=== PATIENT | female | born 1945 | race Two or more races ===

== ENCOUNTER → 2025-06-21 | Outpatient (CLI) | payer MEDICARE, MEDICAID, SELFPAY ==
[2025-06-21 08:36] LABS: Basophils # (Auto) 0.1 Thou/mm3 (0.0-0.2); Basophils % (Auto) 1 % (0-2.5); Eosinophils # (Auto) 0.3 Thou/mm3 (0.0-0.5); Eosinophils % (Auto) 3 % (0-10); Hematocrit 36.6 % (36.0-46.0); Hemoglobin 11.8 g/dL (12.0-16.0); Immature Granulocytes Auto 0.02 Thou/mm3 (0.00-0.00); Lymphocytes # (Auto) 2.3 Thou/mm3 (1.0-4.8); Lymphocytes % (Auto) 26 % (10-50); Mean Corpuscular HGB Conc 32.2 g/dl (31.0-37.0); Mean Corpuscular Hemoglobin 31.1 pg (25.0-35.0); Mean Corpuscular Volume 96 fL (80-100); Monocytes # (Auto) 0.6 Thou/mm3 (0.0-0.8); Monocytes % (Auto) 7 % (0-12); Neutrophils # (Auto) 5.6 Thou/mm3 (1.8-7.7); Neutrophils % (Auto) 63 % (37-80); Nucleated Red Blood Cell # 0.00 Thou/mm3 (0.00-0.00); Nucleated Red Blood Cell % 0 /100 WBC (0); Platelet Count 243 Thou/mm3 (140-440); RDW Standard Deviation 48.7 fL (36.4-46.3); Red Blood Count 3.80 Miln/mm3 (4.00-5.20); White Blood Count 8.9 Thou/mm3 (3.6-11.0)
[2025-06-21 08:46] LABS: B-Type Natriuretic Peptide 42 pg/mL (0-100)
[2025-06-21 08:49] LABS: D-Dimer 470 ng/mL (<600)
[2025-06-21 08:56] LABS: Alanine Aminotransferase 12 U/L (10-49); Albumin, Serum 4.5 gm/dL (3.4-4.8); Albumin/Globulin Ratio 1.7 (1.2-2.2); Alkaline Phosphatase 126 U/L (46-116); Anion Gap 10 (7-16); Aspartate Amino Transferase 15 U/L (0-34); BUN/Creatinine Ratio 18 Ratio (12-20); Bilirubin,Total 0.4 mg/dL (0.3-1.2); Blood Urea Nitrogen 22 mg/dL (9-23); Calcium 9.7 mg/dL (8.3-10.6); Calcium (Corrected) 9.7 mg/dL (8.5-10.1); Carbon Dioxide 28.9 mMol/L (20.0-31.0); Chloride 106 mMol/L (98-107); Creatinine (Component) 1.2 mg/dL (0.6-1.3); Globulin 2.7 gm/dL (2.3-3.5); Glucose 125 mg/dL (74-106); Osmolality,Calculated 293 (275-295); Potassium 4.4 mMol/L (3.4-5.1); Sodium 145 mMol/L (136-145); Thyroid Stimulating Hormone 1.49 uIU/mL (0.55-4.78); Total Protein 7.2 gm/dL (5.7-8.2); eGFR 46 See Note
== END | disposition home or self-care (01) ==
LOC: COPL 07:01
PROVIDERS: PCP Family Medicine; Referring Provider Family Medicine; Visit Provider Family Medicine
DX: R60.0 Localized edema (principal); I11.9 Hypertensive heart disease without heart failure
CPT/HCPCS: 36415; 80053; 83880; 84443; 85025; 85379

== ENCOUNTER 2025-09-19 10:26 | Inpatient (IN) | payer MEDICARE, MEDICAID, SELFPAY ==
[2025-09-19] VITALS (16 sets, daily range): BP systolic 101–132; BP diastolic 38–64; PULSE 73–103; RESP 16–98; TEMP 36.6–37.1; O2SAT 91–100; BMI 31.2
--- NOTE | 2025-09-19 10:50 | PD.EDRME ---
Rapid Medical Screening Exam RME Arrival date/time: 09/19/25 10:26 80-year-old female presents to the emergency department today for complaints of vomiting black patient reports abdominal pain as well onset of symptoms today. On exam patient well-appearing patient does not appear toxic patient hemodynamically stable patient does have mild abdominal tenderness Differentials include but not limited to upper GI bleed, lower GI bleed, ulcer Lab work and imaging ordered. Time Seen by Provider: 09/19/25 10:49 Vital signs: Vital Signs Temperature 98.2 F 09/19/25 10:39 Pulse Rate 99 09/19/25 10:39 Respiratory Rate 18 09/19/25 10:39 Blood Pressure 101/64 09/19/25 10:39 Pulse Oximetry (%) 95 09/19/25 10:39 Oxygen Delivery Method Room Air 09/19/25 10:39
[2025-09-19 11:35] LABS: Basophils # (Auto) 0.2 Thou/mm3 (0.0-0.2); Basophils % (Auto) 1 % (0-2.5); Eosinophils # (Auto) 0.1 Thou/mm3 (0.0-0.5); Eosinophils % (Auto) 1 % (0-10); Hematocrit 23.8 % (36.0-46.0); Immature Granulocytes Auto 0.11 Thou/mm3 (0.00-0.00); Lymphocytes # (Auto) 4.8 Thou/mm3 (1.0-4.8); Lymphocytes % (Auto) 25 % (10-50); Mean Corpuscular HGB Conc 31.1 g/dl (31.0-37.0); Mean Corpuscular Hemoglobin 30.6 pg (25.0-35.0); Mean Corpuscular Volume 98 fL (80-100); Monocytes # (Auto) 1.2 Thou/mm3 (0.0-0.8); Monocytes % (Auto) 6 % (0-12); Neutrophils # (Auto) 13.0 Thou/mm3 (1.8-7.7); Neutrophils % (Auto) 67 % (37-80); Nucleated Red Blood Cell # 0.00 Thou/mm3 (0.00-0.00); Nucleated Red Blood Cell % 0 /100 WBC (0); Platelet Count 292 Thou/mm3 (140-440); RDW Standard Deviation 51.8 fL (36.4-46.3); Red Blood Count 2.42 Miln/mm3 (4.00-5.20); White Blood Count 19.4 Thou/mm3 (3.6-11.0)
[2025-09-19 11:52] LABS: INR 1.0 (0.9-1.3); Partial Thromboplastin Time 22.0 Seconds (22.0-36.0); Prothrombin Time 11.1 Seconds (9.0-12.2)
[2025-09-19 12:02] LABS: Hemoglobin 7.4 g/dL (12.0-16.0)
[2025-09-19 12:08] LABS: Alanine Aminotransferase 9 U/L (10-49); Albumin, Serum 4.2 gm/dL (3.4-4.8); Albumin/Globulin Ratio 2.2 (1.2-2.2); Alkaline Phosphatase 74 U/L (46-116); Anion Gap 11 (7-16); Aspartate Amino Transferase 12 U/L (0-34); BUN/Creatinine Ratio 51 Ratio (12-20); Bilirubin,Total 0.2 mg/dL (0.3-1.2); Blood Urea Nitrogen 66 mg/dL (9-23); Calcium 9.7 mg/dL (8.3-10.6); Calcium (Corrected) 9.7 mg/dL (8.5-10.1); Carbon Dioxide 22.7 mMol/L (20.0-31.0); Chloride 110 mMol/L (98-107); Creatinine (Component) 1.3 mg/dL (0.6-1.3); Estimated Creatinine Clearance 37.2 mL/min (>60); Globulin 1.9 gm/dL (2.3-3.5); Glucose 148 mg/dL (74-106); Lipase 43 U/L (12-53); Osmolality,Calculated 308 (275-295); Potassium 4.7 mMol/L (3.4-5.1); Sodium 144 mMol/L (136-145); Total Protein 6.1 gm/dL (5.7-8.2); eGFR 42 See Note
--- NOTE | 2025-09-19 13:32 | EKG_ITS ---
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
--- NOTE | 2025-09-19 13:32 | XR_ITS ---
EXAMINATION: AP chest single view TECHNIQUE: AP portable upright chest single view Date and time: September 19, 2025, 1351 hours, comparison April 02, 2016 INDICATIONS: Shortness of breath coughing today. FINDINGS: Normal heart size. Lungs are clear. The osseous structures are intact IMPRESSION: No active disease
[2025-09-19] MEDS: MORPHINE SULF INJ 4 MG/ML VIAL IVP (14:39)
[2025-09-19] MEDS: ONDANSETRON INJ 2 MG/ML INJ 2 ML 4 MG IVP (14:40)
[2025-09-19] MEDS: SODIUM CHLORIDE 0.9% 1000 ML 1,000 ML 999 ML IV (14:40)
--- NOTE | 2025-09-19 14:51 | EDNOTE_ITS ---
ED GI Bleed RME/HPI General Chief complaint: GI Bleed Stated complaint: vomitting black Time Seen by Provider: 09/19/25 10:49 Arrival date/time: 09/19/25 10:26 Limitations: no limitations RME / HPI RME / HPI Narrative: 09/19/25 10:26 80-year-old female presents to the emergency department today for complaints of vomiting black patient reports abdominal pain as well onset of symptoms today. On exam patient well-appearing patient does not appear toxic patient hemodynamically stable patient does have mild abdominal tenderness Differentials include but not limited to upper GI bleed, lower GI bleed, ulcer Lab work and imaging ordered. DR. PAREKH MAIN ED EVALUATION: 80 year old female with history of hypertension presents to the ED for evaluation of vomiting black 3 days ago. Reportedly had a total of ~ 6 episodes over the course of 2 days and has not had any episodes in the last 24 hours. Accompanied by epigastric abdominal pain she described as aching in sensation, rating 8/10 in severity. Denies any history of vomiting black . Denies eating any dark colored foods or using Pepto Bismol. No other associated symptoms or complaints reported. Related Data Home Medications ?Medication ?Instructions ?Recorded ?Confirmed Aspirin (Aspir 81) 81 mg PO QAM ##0 04/02/16 Hydrocodone/Acetaminophen (NORCO 1 tab PO [id number] PRN PAIN #0 tabs 04/02/16 09/19/25 7.5/325) amlodipine 10 mg tablet (Norvasc) 10 mg PO QDAY #0 tab s 04/02/16 09/19/25 atorvastatin 10 mg tablet (Lipitor) 10 mg PO QAM #0 ta bs 04/02/16 09/19/25 benazepril 40 mg tablet (Lotensin) 40 mg PO QDAY #0 ta bs 04/02/16 09/19/25 memantine 10 mg tablet mg 09/19/25 Allergies Allergy/AdvReac Type Severity Reaction Status Date / Time aspirin Allergy Unknown GI UPSET Verified 04/05/16 12:53 codeine Allergy Unknown CAN'T Verified 04/05/16 12:53 BREATH,ABD PAIN Penicillins Allergy Unknown Rash Verified 04/05/16 12:53 Review of Systems Review of Systems Systems Reviewed: All systems reviewed, normal except as documented Past Medical History Past Medical History CARDIAC: Positive Hypertension Social History SMOKING STATUS: Never smoker ED Exam General Limitations: Present no limitations General appearance: Present alert and in no apparent distress Head Head exam: Present atraumatic, normocephalic and normal inspection Eye Eye exam: Present normal appearance, PERRL and EOMI ENT ENT exam: Present normal exam, normal oropharynx and mucous membranes moist Neck Neck exam: Present normal inspection, full ROM, trachea midline and other (No JVD ) Chest Chest inspection: Present normal inspection and symmetric chest wall rise Respiratory Respiratory exam: Present normal lung sounds bilaterally Cardiovascular Cardiovascular exam: Present regular rate, normal rhythm and normal heart sounds Abdominal Exam Abdominal exam: Present soft, tenderness (mild diffuse tenderness over the upper abdomen ) and normal bowel sounds Rectal Exam Rectal exam: Present heme (+) stool, black stool and other (Exam performed in presence of female nurse ) Extremities Exam Extremities exam: Present normal inspection and full ROM Back Exam Back exam: Present normal inspection and full ROM Neurological Exam Neurological exam: Present alert, oriented X3 and CN II-XII intact Psychiatric Psychiatric exam: Present normal affect and normal mood Skin Skin exam: Present warm, dry, intact and normal color Course Quality Measures none Orders Category Date Time Status Admit to Inpatient Status Routine Admission 09/19/25 16:54 Active Patient Condition Routine Admission 09/19/25 16:54 Ordered Activity as Tolerated Routine Care 09/19/25 16:56 Ordered COVID-19 Screening Questionnaire NOW Care 09/19/25 15:49 Active Copper Plate Lithographer NOW Care 09/19/25 13:32 Active Continuous Pulse Oximetry NOW Care 09/19/25 13:32 Completed Continuous Pulse Oximetry NOW Care 09/19/25 16:54 Completed Decision to Admit X1 Care 09/19/25 15:49 Completed EKG (ED ONLY) *Do not use* NOW Care 09/19/25 13:32 Completed Insert IV NOW Care 09/19/25 10:54 Active Insert IV NOW Care 09/19/25 13:32 Completed May take PO meds w/sips of H2O NEEDED Care 09/19/25 16:54 Active Miscellaneous Nursing Order NOW Care 09/19/25 17:02 Active Notify provider NEEDED Care 09/19/25 16:54 Active Occult Blood,Stool (Nursing) NOW Care 09/19/25 13:33 Active Sequential Compression Device QSHIFT Care 09/19/25 16:59 Active Strict Intake and Output Routine Care 09/19/25 16:56 Ordered Transfuse,blood/blood products NOW Care 09/19/25 16:02 Active Consult to Gastroenterology Stat Cons 09/19/25 15:[address] abdomen wo con Stat Exams 09/19/25 16:20 Ordered EKG (ED Only) Stat Exams 09/19/25 13:32 Draft XR chest 1V portable Stat Exams 09/19/25 13:32 Completed A1C [Glycohemoglobin w (eAG)] AM DRAW Lab 09/20/25 05:00 Ordered Blood Culture (Lab) Routine Lab 09/19/25 17:01 Ordered CBC AM DRAW Lab 09/20/25 05:00 Ordered CBC AM DRAW Lab 09/21/25 05:00 Ordered CBC AM DRAW Lab 09/22/25 05:00 Ordered CBC Stat Lab 09/19/25 11:19 Completed CBC Stat Lab 09/19/25 16:32 Completed Comprehensive Metabolic Panel AM DRAW Lab 09/20/25 05:00 Ordered Comprehensive Metabolic Panel AM DRAW Lab 09/21/25 05:00 Ordered Comprehensive Metabolic Panel AM DRAW Lab 09/22/25 05:00 Ordered Comprehensive Metabolic Panel Stat Lab 09/19/25 11:19 Completed Hgb and Hct Post-Transfusion Stat Lab 09/19/25 16:22 Ordered Lipase Stat Lab 09/19/25 11:19 Completed Lipid Panel AM DRAW Lab 09/20/25 05:00 Ordered Magnesium AM DRAW Lab 09/20/25 05:00 Ordered Magnesium AM DRAW Lab 09/21/25 05:00 Ordered Magnesium AM DRAW Lab 09/22/25 05:00 Ordered Partial Thromboplastin Time Stat Lab 09/19/25 11:19 Completed Path Review Blood Smear Stat Lab 09/19/25 16:32 Completed Phosphorous AM DRAW Lab 09/20/25 05:00 Ordered Phosphorous AM DRAW Lab 09/21/25 05:00 Ordered Phosphorous AM DRAW Lab 09/22/25 05:00 Ordered Procalcitonin Routine Lab 09/19/25 16:32 Completed Prothrombin Time with INR Stat Lab 09/19/25 11:19 Completed Thyroid Stimulating Hormone AM DRAW Lab 09/20/25 05:00 Ordered Troponin I Stat Lab 09/19/25 11:19 Completed Type and Screen Stat Lab 09/19/25 11:19 Results Urinalysis Routine Lab 09/19/25 15:45 Received prbc [Red Blood Cells] Stat Lab 09/19/25 11:19 Results Acetaminophen Tab [Tylenol Tab] Med 09/19/25 16:54 Active 650 mg PO Q6H PRN HYDROcodone*/APAP 5/325 [[place] 5/325] Med 09/19/25 16:59 Active 1 tab PO Q4HR PRN Morphine* Inj Med 09/19/25 16:59 Active 2 mg IVP Q4HR PRN Morphine* Inj Med 09/19/25 13:44 Discontinued 4 mg IVP X1 ONE Ondansetron Inj [Zofran Inj] Med 09/19/25 16:54 Active 4 mg IVP Q6H PRN Ondansetron Inj [Zofran Inj] Med 09/19/25 13:44 Discontinued 4 mg IVP X1 ONE Pantoprazole Inj [Protonix Inj] Med 09/19/25 21:00 Active 40 mg IVP BID Pantoprazole Inj [Protonix Inj] Med 09/19/25 10:54 Discontinued 80 mg IVP X1 ONE Ringers Lactated 1000 ml [Lactated Ringers] 1,000 ml Med 09/19/25 17:00 Active IV 75 mls/hr Senna [Senokot] Med 09/19/25 16:54 Active 1 tab PO QDAY PRN Sodium Chloride 0.9% 1000 ml [Ns] 1,000 ml Med 09/19/25 13:32 Discontinued IV 999 mls/hr Code Status Routine Oth 09/19/25 16:54 Ordered Oxygen Delivery PRN RT 09/19/25 16:54 Active Vital Signs Vital signs: Vital Signs Temperature 98.2 F 09/19/25 10:39 Pulse Rate 99 09/19/25 10:39 Respiratory Rate 18 09/19/25 10:39 Blood Pressure 101/64 09/19/25 10:39 Pulse Oximetry (%) 95 09/19/25 10:39 Oxygen Delivery Method Room Air 09/19/25 10:39 Pulse ox is 95% on room air which is adequate. GI Bleed MDM Narrative MDM Narrative:: Ama Sweeney am scribing for and in the presence of Dr. Parekh. Patient data External records reviewed:: None (No previous records for review ) Clinical information provided by:: patient Social determinants that could affect healthcare access:: none Patient has the following chronic illnesses:: HTN How is presenting disease/condition affected by chronic disease/condition?: uneffected by Evaluation data The following diagnostics were reviewed and interpreted by me:: lab results, radiology exam(s) and EKG tracing(s) (EKG @ 14:25 PM. Sinus tachycardia, rate 100, no STEMI. ) Lab and/or radiology exams considered but not ordered:: None Interpretation Summary: Ordering Physician: Kye Parekh MD Date of Service: 09/19/25 Procedure(s): XR chest 1V portable Accession Number(s): [id number] cc: Kye Parekh MD; Franc Lowry MD; Kelton Marquez MD~ EXAMINATION: AP chest single view TECHNIQUE: AP portable upright chest single view Date and time: September 19, 2025, 1351 hours, comparison April 02, 2016 INDICATIONS: Shortness of breath coughing today. FINDINGS: Normal heart size. Lungs are clear. The osseous structures are intact IMPRESSION: No active disease Dictated By: Kelton Marquez MD Signed By: <Electronically signed by Kelton Marquez MD in OV> 09/19/25 1418 Medications / Prescriptions Medications or Prescriptions considered but not ordered:: None Medication administrations:: Medication Administration History Acetaminophen (Acetaminophen 325 Mg Tablet) 650 mg PO Q6H PRN PRN Reason: Fever >100.4 or pain 1-3 Stop: 10/19/25 16:53 Hydrocodone Bitart/Acetaminophen (Hydrocodone/Apap 5/325 Tablet) 1 tab PO Q4HR PRN PRN Reason: PAIN SCALE 4-6 (Moderate Stop: 09/24/25 16:58 Lactated Ringer's (Lactated Ringers) 1,000 mls @ 75 mls/hr IV .[id number] HOME Stop: 09/20/25 19:39 Last Admin: 09/19/25 17:32 Dose: 75 mls/hr Documented By: BY Morphine Sulfate (Morphine Sulf Inj 4 Mg/Ml Vial) 2 mg IVP Q4HR PRN PRN Reason: PAIN SCALE 7-10 (Severe Stop: 09/24/25 16:58 Ondansetron HCl (Ondansetron Inj 2 Mg/Ml Inj 2 Ml) 4 mg IVP Q6H PRN; Protocol PRN Reason: NAUSEA OR VOMITING Stop: 10/19/25 16:53 Pantoprazole Sodium (Pantoprazole Inj 40 Mg Vial) 40 mg IVP BID HOME Stop: 10/19/25 20:59 Sennosides (Senna Tablet) 1 tab PO QDAY PRN; Protocol PRN Reason: constipation Stop: 10/19/25 16:53 Discontinued Medications Sodium Chloride (Ns) 1,000 mls @ 999 mls/hr IV .Q1H1M ONE Stop: 09/19/25 14:32 Last Infusion: 09/19/25 15:41 Dose: Infused Documented By: Admin: 09/19/25 14:40 Dose: 999 mls/hr Documented By: BY Morphine Sulfate (Morphine Sulf Inj 4 Mg/Ml Vial) 4 mg IVP X1 ONE Stop: 09/19/25 13:45 Last Admin: 09/19/25 14:39 Dose: 4 mg Documented By: BY Ondansetron HCl (Ondansetron Inj 2 Mg/Ml Inj 2 Ml) 4 mg IVP X1 ONE; Protocol Stop: 09/19/25 13:45 Last Admin: 09/19/25 14:40 Dose: 4 mg Documented By: BY Pantoprazole Sodium (Pantoprazole Inj 40 Mg Vial) 80 mg IVP X1 ONE Stop: 09/19/25 10:55 Last Admin: 09/19/25 14:40 Dose: 80 mg Documented By: BY See above Consultations Consultation(s) initiated? (list below): Yes Consultation #1 (Physician, Specialty, Details): I spoke with GI Dr. Garcia. Discussed patients PMHx, HPI, ED course, exam findings, labs, and radiology results. He agrees to consult. Consultation #2 (Physician, Specialty, Details): I spoke with hospitalist team A for admission. Discussed patients PMHx, HPI, ED course, exam findings, labs, and radiology results. The hospitalist agree to accept the patient for admission. Diagnosis GI bleed differential diagnosis: hemorrhoids, esophageal varices, gastritis, Upper gastrointestinal hemorrhage, Lower gastrointestinal hemorrhage, melena and anal fissure Most likely diagnosis given after review of the tests above:: GI bleed Anemia Admission Indicated Admission indicated?: indicated Admission Request Was there a request for admission?: Yes Admission Attestation Admission request attestation: Discussed case with [] from Hospitalist service regarding admission. Discussed patients ED course, exam findings, labs, and radiology results. The Hospitalist [agrees,declines] to accept the patient for admission. Disposition Plan Disposition Plan: Admit Discharge Plan Plan Patient Disposition: Admit Acute Care w/in Hospital Problem List Clinical Impression: GI bleed, Anemia
[2025-09-19 15:19] LABS: Troponin I 0.033 ng/mL (0.0-0.045)
--- NOTE | 2025-09-19 16:10 | PC.NURSE ---
admiting providers at bedside, per patient neighbor patient has been taking a lot of aleve for pain , [facility]
--- NOTE | 2025-09-19 16:20 | XR_ITS ---
Examination: CT abdomen without intravenous contrast. Coronal 2-D reconstructions. Sagittal 2-D reconstructions. Date and time of exam: September 19, 2025, 1838 hours INDICATIONS: Abdominal pain constipation beginning 2 days ago COMPARISON: July 08, 2007 CTDI: vol (mGy): 10.4 DLP: (mGycm): 393 Technique: Axial images of the abdomen have been obtained, 3 mm slice thickness, without intravenous contrast 2-D sagittal coronal reconstructions Low dose protocols were performed. One or more of the following dose reduction techniques were used; automated exposure control, adjustment of the mA and/or KV according to patient size, use of iterative reconstruction technique. Findings: No visualized liver or splenic lesion Absent gallbladder Common bile duct 8 mm No pancreatic mass or peripancreatic edema Adrenal glands are not enlarged Atrophic kidneys with significant renal scarring Hyperdense mass posterior margin left kidney, 4.6 x 4.1 cm No ascites Aorta normal size Bilateral 1 to 2 mm renal calculi No bowel obstruction No pericecal inflammatory change 38 mm fat-containing anterior lower abdominal wall hernia defect IMPRESSION: Mild enlargement of common bile duct, 8 mm, consider hepatobiliary sonography follow-up 4.6 x 4.1 cm hyperdense mass posterior margin left kidney, recommend elective MRI abdomen kidneys follow-up pre and postcontrast to confirm renal tumor
--- NOTE | 2025-09-19 16:21 | ESCONSULT_ITS ---
HPI Data of Consult Primary Care Provider: Franc Lowry MD Consult Narrative Reason for consult: GI bleed History of present illness: HPI: An 80 years old female patient, poor historian, known case of hypertension, CVA, chronic back pain and Back surgery, multiple intra-abdominal surgeries, was sent to the ED by her PCP after she was found to have abnormal blood test. Patient reported that for the past few days she started to have multiple episodes of vomiting of blood, and multiple episodes of bowel movements that is black in color. She also reported abdominal pain started at the epigastric area with no radiation. She does not know exactly when that the pain started. She mentioned that for the past 3 days she has not had any bowel movement and her vomiting has stopped. She reported that she ran out of her medications 9 days ago. The nurse called the patient friend who gave her her medications and she reported that the patient has chronic back pain in which she was not able to get her [place] prescription for the reasons patient was taking a lot of Aleve to help with the pain. Patient denied using any blood thinners. Patient denied any weight loss, jaundice, skin ulcers or skin rash. Patient denied any chest pain however she reported a while ago she had some chest pain in which she was prescribed sublingual pills however she has not seen a dry room operator. Home medications:Atorvastatin, amlodipine, aspirin, benazepril, [place], Aleve, ED course: On presentation patient was found to have blood pressure of 101/64, pulse rate of 99, respiratory rate 18, other vitals within normal limits,WBC was found to be 19.4, hemoglobin 7.4, her hemoglobin in May 2025 was 11.8. MCV and MCH are within normal limits, platelets of 292, coagulation panel within normal limits, potassium is 4.7, sodium 144, BUN is 66, serum creatinine is 1.3, serum creatinine Grace was 1.2, AST and ALT within normal limits, troponin is normal, lipase is normal, blood group is B+ EKG showed diffuse ST segment abnormalities with T wave inversion.chest x-ray was normal, Patient was given IV fluids, Protonix loading dose 80 mg x 1, PMH: As above PSX: Multiple intra-abdominal surgeries, appendectomy, back surgery secondary to tailbone fracture PFX: Noncontributory Social hx: Alcohol: Used to drink socially Tobacco: Denied Illicit drugs: Denied Allergies: Aspirin?, Codeine?, Penicillin cc:: cc: Exam Vital Signs Temp Pulse Resp BP Pulse Ox O2 Del Method 98.7 F 84 18 132/60 H 100 Room Air 09/19/25 15:29 09/19/25 16:02 09/19/25 16:02 09/19/25 16:02 09/19/25 16:02 09/19/25 16:02 Narrative Exam GEN: AOx3, able to speak full sentences HEENT: NC/AC, oral mucosa moist, neck supple CVS: RRR, S1-S2 present, no murmurs appreciated RESP: CTAB GI: Midline surgical scar, Epigastric tenderness and localized rigidity, mild distension MSK: able to move all 4 limbs, no lower extremity edema SKIN: warm and dry CAD PROGRAMMER: CN II-XII and Sensation grossly intact. Results Labs 09/19/25 16:32 09/19/25 11:19 Labs: Short CBC 09/19/25 Range/Units 11:19 WBC 19.4 H (3.6-11.0) Thou/mm3 Hgb 7.4 L (12.0-16.0) g/dL Hct 23.8 L (36.0-46.0) % Plt Count 292 (140-440) Thou/mm3 BMP 09/19/25 11:19 Sodium 144 Potassium 4.7 Chloride 110 H Carbon Dioxide 22.7 BUN 66 H Creatinine 1.3 Glucose 148 H Calcium 9.7 Cardiac Enzymes 09/19/25 Range/Units 11:19 Troponin I 0.033 (0.0-0.045) ng/mL Liver Function 09/19/25 Range/Units 11:19 Total Bilirubin 0.2 L (0.3-1.2) mg/dL AST 12 (0-34) U/L ALT 9 L (10-49) U/L Alkaline Phosphatase 74 (46-116) U/L Albumin 4.2 (3.4-4.8) gm/dL Quality Measures Quality Measures none Advance care planning discussed with:: patient and spouse Medications Home Medications and Allergies Home Medications ?Medication ?Instructions ?Recorded ?Confirmed ?Type Aspirin (Aspir 81) 81 mg PO QAM ##0 04/02/16 History Hydrocodone/Acetaminophen (NORCO 1 tab PO [id number] PRN PAIN #0 tabs 04/02/16 09/19/25 History 7.5/325) amlodipine 10 mg tablet (Norvasc) 10 mg PO QDAY #0 tab s 04/02/16 09/19/25 History atorvastatin 10 mg tablet (Lipitor) 10 mg PO QAM #0 ta bs 04/02/16 09/19/25 History benazepril 40 mg tablet (Lotensin) 40 mg PO QDAY #0 ta bs 04/02/16 09/19/25 History memantine 10 mg tablet mg 09/19/25 History Allergies Allergy/AdvReac Type Severity Reaction Status Date / Time aspirin Allergy Unknown GI UPSET Verified 04/05/16 12:53 codeine Allergy Unknown CAN'T Verified 04/05/16 12:53 BREATH,ABD PAIN Penicillins Allergy Unknown Rash Verified 04/05/16 12:53 Visit Medications Pantoprazole Sodium (Pantoprazole Inj 40 Mg Vial) 40 mg IVP BID HOME Stop: 10/19/25 20:59 Discontinued Medications Sodium Chloride (Ns) 1,000 mls @ 999 mls/hr IV .Q1H1M ONE Stop: 09/19/25 14:32 Last Admin: 09/19/25 14:40 Dose: 999 mls/hr Morphine Sulfate (Morphine Sulf Inj 4 Mg/Ml Vial) 4 mg IVP X1 ONE Stop: 09/19/25 13:45 Last Admin: 09/19/25 14:39 Dose: 4 mg Ondansetron HCl (Ondansetron Inj 2 Mg/Ml Inj 2 Ml) 4 mg IVP X1 ONE; Protocol Stop: 09/19/25 13:45 Last Admin: 09/19/25 14:40 Dose: 4 mg Pantoprazole Sodium (Pantoprazole Inj 40 Mg Vial) 80 mg IVP X1 ONE Stop: 09/19/25 10:55 Last Admin: 09/19/25 14:40 Dose: 80 mg Assessment & Plan Plan An 80 years old female patient, poor historian, known case of hypertension, chronic back pain and Back surgery, multiple intra-abdominal surgeries, was sent to the ED by her PCP after she was found to have abnormal blood test. Patient was found to have apparent lower GI bleed. Stool occult blood test was positive. #Acute blood loss anemia #Upper GI bleed was likely secondary to peptic ulcer #Lower GI bleed most likely secondary to upper GI bleed #Acute abdominal pain most likely secondary to peptic ulcer disease versus Ariana-jean $, vs less likely peptic ulcer perforation. Patient presented to her PCP secondary to generalized fatigue and weakness. Patient reported that for the past 9 days she has been having abdominal pain. Her neighbor reported that she has been taking excessive amount of NSAIDs Aleve because of the pain. In May her hemoglobin was 11.8. Today it was 7.4. MCV and MCH are normal, stool occult blood test was positive. Her blood pressure is in the soft side 101/67, heart rate was 99. Which may indicate that the patient has significant blood loss. Coagulation panel was normal, platelets were within normal limits. Patient has epigastric tenderness mild rigidity and elevated white count. Patient also reported constipation for the past 3 days which may represent abdominal ileus secondary to possible bowel subtle PUD perforation. Plan ? Start the patient 2 large IV lines ? Start the patient on pantoprazole 40 mg IV twice daily ? Stat CT abdomen and pelvis, and follow-up on the results, consider starting the patient on antibiotic and consider consulting surgery if CT scan is positive for abdominal perforation. ? Transfuse the patient 1 unit of blood, H&H posttransfusion. ? Keep hemoglobin above 8 as the patient reported that she has had chest pain in the past and she used to take nitroglycerin sublingual. EKG showed diffuse T wave inversion. Patient has not seen a dry room operator in the past. ? Keep the patient n.p.o. for EGD ? Monitor hemoglobin every 12 hours or sooner if clinically indicated #Hypertension #Chronic back pain Plan ? Follow primary team recommendations Thank you for your consultation, please do not hesitate to reach out if you have any question or concern - Patient's plan and care discussed with my attending, Dr. Jose Carpenter MD Internal Medicine PGY-3 Attending Provider Attestation/Addendum Patient evaluated I personally reviewed the labs and the imaging studies No evidence on CT scan of the abdomen for any acute pathology except a liver mass which would probably need outpatient evaluation For her critical presentations of hematemesis and melena Consent obtained for fiberoptic esophagogastroduodenoscopy with possible biopsy possible therapeutic intervention under intravenous moderate sedation Hemoglobin has gone down to 6.6 g If no reasonable explanation is found on upper endoscopy I will consider doing a fiberoptic colonoscopy to look for any synchronous lesion in the colon IV Protonix Will follow the patient Thank you very much for the opportunity to participate in the care of this patient
[2025-09-19 17:03] LABS: Basophils # (Auto) 0.1 Thou/mm3 (0.0-0.2); Basophils % (Auto) 1 % (0-2.5); Eosinophils # (Auto) 0.2 Thou/mm3 (0.0-0.5); Eosinophils % (Auto) 1 % (0-10); Hematocrit 21.1 % (36.0-46.0); Immature Granulocytes Auto 0.10 Thou/mm3 (0.00-0.00); Lymphocytes # (Auto) 4.3 Thou/mm3 (1.0-4.8); Lymphocytes % (Auto) 25 % (10-50); Mean Corpuscular HGB Conc 31.3 g/dl (31.0-37.0); Mean Corpuscular Hemoglobin 30.4 pg (25.0-35.0); Mean Corpuscular Volume 97 fL (80-100); Monocytes # (Auto) 0.9 Thou/mm3 (0.0-0.8); Monocytes % (Auto) 5 % (0-12); Neutrophils # (Auto) 11.6 Thou/mm3 (1.8-7.7); Neutrophils % (Auto) 68 % (37-80); Nucleated Red Blood Cell # 0.02 Thou/mm3 (0.00-0.00); Nucleated Red Blood Cell % 0 /100 WBC (0); Platelet Count 257 Thou/mm3 (140-440); RDW Standard Deviation 51.9 fL (36.4-46.3); Red Blood Count 2.17 Miln/mm3 (4.00-5.20); White Blood Count 17.1 Thou/mm3 (3.6-11.0)
--- NOTE | 2025-09-19 17:05 | ESHP_ITS ---
Documentation for date of: 09/19/25 Saad is a 80 year old female with past medical history of Hypertension, Hyperlipidemia, chronic pain on [place] 7.5 as home medication, dementia on memantine (?) who presented via patient's own vehicle with chief complain of naseua and hematemesis and melena. Patient was admitted for acute blood loss anemia w/ concern of acute GI bleed with unclear etiology but ulcer vs varices vs tear vs maligancy. Currently NPO, plan for EGD. Transfuse 2 unit of PRBC given anemia. Transfuse now, repeat H&H. LR maintenance fluid 2 bags @ 75cc given acute blood loss. Elevated BUN concern for internal bleeding, pending CT. Leukocytosis noted, less likely reactive given WBC 17 vs infectious Cxr negative and UA negative. Obtain blood cutlure. Denied recent wounds vs leukemia. Add broad specturm antibiotics if WBC worsens. Possible UTI given bacteria and WBC but denied urinary symptoms. Hodling off antibiotics. Leukocytosis may be secondary to GI bleeding. Monitor for infectious signs such as pyrexia or tachycardia. NATACHA, concerning for pre-renal given BUN/Cr and blood loss. Fluid resucitation. Consider urine lytes if worsening. Strict ins and outs. Holding off anti-hypertensives given acute blood loss. Pending GI consult and Abdomen CT, Senior Resident Attestation: I have discussed the case with supervising physician and international account manager physician involved in the care of patient. I personally saw and examined patient and discussed the assessment and plan with the entire medical team, including attending. I agree with assessment and plan as documented below. - The patient's plan was discussed with attending Dr. Mahesh Weaver MD PGY2 Internal Medicine HPI History of Present Illness History of present illness: An 80 years old female patient, poor historian, known case of hypertension, CVA, chronic back pain and Back surgery, multiple intra-abdominal surgeries, was sent to the ED by her PCP after she was found to have abnormal blood test. Patient reported that for the past few days she started to have multiple episodes of vomiting of blood (dark brown and black in color), and multiple episodes of bowel movements that is black in color 4-5 days ago. She has not had BM or vomit since then, however she has an ongoing sensation to poop. She also reported abdominal pain started at the epigastric area with no radiation. She does not know exactly when that the pain started. She reports feeling nauseas and bloated. States that she eats the same thing as her and he has no symptoms. She reported that she ran out of her medications 9 days ago. The nurse called the patient friend who gave her her medications and she reported that the patient has chronic back pain in which she was not able to get her [place] prescription for the reasons patient was taking a lot of Aleve to help with the pain. Patient denied using any blood thinners. Patient denied any weight loss, jaundice, skin ulcers or skin rash. Patient denied any chest pain however she reported a while ago she had some chest pain in which she was prescribed sublingual pills however she has not seen a processing associate. She however did not take the sublingual pills, for unknown reasons. ED course: On presentation patient was found to have blood pressure of 101/64, pulse rate of 99, respiratory rate 18, other vitals within normal limits,WBC was found to be 19.4, hemoglobin 7.4, her hemoglobin in May 2025 was 11.8. MCV and MCH are within normal limits, platelets of 292, coagulation panel within normal limits, potassium is 4.7, sodium 144, BUN is 66, serum creatinine is 1.3, serum creatinine Grace was 1.2, AST and ALT within normal limits, troponin is normal, lipase is normal, blood group is B+ EKG showed diffuse ST segment abnormalities with T wave inversion.chest x-ray was normal, Patient was given IV fluids, Protonix loading dose 80 mg x 1, Code: full PMH: As above Home medications:Atorvastatin, amlodipine, aspirin, benazepril, [place], Aleve PSX: Multiple intra-abdominal surgeries, appendectomy, back surgery secondary to tailbone fracture PFX: Noncontributory Social hx: Alcohol: Used to drink socially Tobacco: Denied Illicit drugs: Denied Allergies: Aspirin Codeine Penicillin All 12 systems reviewed and were negative except otherwise stated in HPI. Exam Vital Signs Temp Pulse Resp BP Pulse Ox O2 Del Method 98.7 F 84 18 132/60 H 100 Room Air 09/19/25 15:29 09/19/25 16:02 09/19/25 16:02 09/19/25 16:02 09/19/25 16:02 09/19/25 16:02 Narrative Exam GENERAL APPEARANCE: AOx3. NAD, activity normal for age, well developed/ well nourished, no cyanosis, pallor, or diaphoresis. HEENT: Normocephalic atraumatic, no facial trauma, neck is supple. Lids/conjunctiva normal. Mucous membranes moist, nares normal, lips/teeth normal uvula midline without oral pharyngeal erythema, exudate or swelling TMs normal bilaterally. No lymphangitis/lymphedema. CARDIAC: Regular rate and rhythm, S1+S2 heard. No murmurs, rubs, or gallops noted RESPIRATORY: respiratory effort normal, speaks in full sentences, no tripod position, no accessory muscle use. Lungs clear to auscultation without rhonchi, wheezes, rales ABDOMINAL: NBS. Soft, ND, TTP at midline and LUQ. No evidence of fluid wave. No pulsatile masses on exam, rebound tenderness, Wooten sign or pain over Mcburney's point. MUSCLES/EXTREMITIES: No abnormal range of motion, no swelling. DERM: Warm, pink and dry. No rashes, dermatoses, petechiae or lesions. NEUROLOGICAL: Speech is clear and appropriate. Normal level of consciousness. Gait and coordination are normal. 5/5 strength in all extremities. PSYCH: Normal mood and affect. Judgement/competence is appropriate Results: Labs 09/21/25 05:21 09/21/25 05:21 Labs: Short CBC 09/19/25 Range/Units 11:19 WBC 19.4 H (3.6-11.0) Thou/mm3 Hgb 7.4 L (12.0-16.0) g/dL Hct 23.8 L (36.0-46.0) % Plt Count 292 (140-440) Thou/mm3 BMP 09/19/25 11:19 Sodium 144 Potassium 4.7 Chloride 110 H Carbon Dioxide 22.7 BUN 66 H Creatinine 1.3 Glucose 148 H Calcium 9.7 Cardiac Enzymes 09/19/25 Range/Units 11:19 Troponin I 0.033 (0.0-0.045) ng/mL Liver Function 09/19/25 Range/Units 11:19 Total Bilirubin 0.2 L (0.3-1.2) mg/dL AST 12 (0-34) U/L ALT 9 L (10-49) U/L Alkaline Phosphatase 74 (46-116) U/L Albumin 4.2 (3.4-4.8) gm/dL Quality Measures Quality Measures none Advance care planning discussed with:: patient Medications Home Medications and Allergies Home Medications ?Medication ?Instructions ?Recorded ?Confirmed ?Type Aspirin (Aspir 81) 81 mg PO QAM ##0 04/02/16 History Hydrocodone/Acetaminophen (NORCO 1 tab PO [id number] PRN PAIN #0 tabs 04/02/16 09/19/25 History 7.5/325) amlodipine 10 mg tablet (Norvasc) 10 mg PO QDAY #0 tab s 04/02/16 09/19/25 History atorvastatin 10 mg tablet (Lipitor) 10 mg PO QAM #0 ta bs 04/02/16 09/19/25 History benazepril 40 mg tablet (Lotensin) 40 mg PO QDAY #0 ta bs 04/02/16 09/19/25 History memantine 10 mg tablet mg 09/19/25 History Allergies Allergy/AdvReac Type Severity Reaction Status Date / Time aspirin Allergy Unknown GI UPSET Verified 04/05/16 12:53 codeine Allergy Unknown CAN'T Verified 04/05/16 12:53 BREATH,ABD PAIN Penicillins Allergy Unknown Rash Verified 04/05/16 12:53 Visit Medications Acetaminophen (Acetaminophen 325 Mg Tablet) 650 mg PO Q6H PRN PRN Reason: Fever >100.4 or pain 1-3 Stop: 10/19/25 16:53 Hydrocodone Bitart/Acetaminophen (Hydrocodone/Apap 5/325 Tablet) 1 tab PO Q4HR PRN PRN Reason: PAIN SCALE 4-6 (Moderate Stop: 09/24/25 16:58 Lactated Ringer's (Lactated Ringers) 1,000 mls @ 75 mls/hr IV .[id number] HOME Stop: 09/20/25 19:39 Morphine Sulfate (Morphine Sulf Inj 4 Mg/Ml Vial) 2 mg IVP Q4HR PRN PRN Reason: PAIN SCALE 7-10 (Severe Stop: 09/24/25 16:58 Ondansetron HCl (Ondansetron Inj 2 Mg/Ml Inj 2 Ml) 4 mg IVP Q6H PRN; Protocol PRN Reason: NAUSEA OR VOMITING Stop: 10/19/25 16:53 Pantoprazole Sodium (Pantoprazole Inj 40 Mg Vial) 40 mg IVP BID HOME Stop: 10/19/25 20:59 Sennosides (Senna Tablet) 1 tab PO QDAY PRN; Protocol PRN Reason: constipation Stop: 10/19/25 16:53 Discontinued Medications Sodium Chloride (Ns) 1,000 mls @ 999 mls/hr IV .Q1H1M ONE Stop: 09/19/25 14:32 Last Infusion: 09/19/25 15:41 Dose: Infused Morphine Sulfate (Morphine Sulf Inj 4 Mg/Ml Vial) 4 mg IVP X1 ONE Stop: 09/19/25 13:45 Last Admin: 09/19/25 14:39 Dose: 4 mg Ondansetron HCl (Ondansetron Inj 2 Mg/Ml Inj 2 Ml) 4 mg IVP X1 ONE; Protocol Stop: 09/19/25 13:45 Last Admin: 09/19/25 14:40 Dose: 4 mg Pantoprazole Sodium (Pantoprazole Inj 40 Mg Vial) 80 mg IVP X1 ONE Stop: 09/19/25 10:55 Last Admin: 09/19/25 14:40 Dose: 80 mg Assessment & Plan Plan An 80 years old female patient, poor historian, known case of hypertension, CVA, chronic back pain and Back surgery, multiple intra-abdominal surgeries, was sent to the ED by her PCP after she was found to have abnormal blood test, also found to have melena and coffee ground emesis. Admitted for GI bleed work up. Found to have hgb 6.6 given 2 units of pRBCs in ED. #Acute blood loss anemia #Upper GI bleed was likely secondary to peptic ulcer #Lower GI bleed most likely secondary to upper GI bleed Acute abdominal pain most likely secondary to peptic ulcer disease versus Ariana-jean $, vs less likely peptic ulcer perforation vs malignancy however no concerning mass or structure seen on CTAP. Patient presented to her PCP secondary to generalized fatigue and weakness. Patient reported that for the past 9 days she has been having abdominal pain. Her neighbor reported that she has been taking excessive amount of NSAIDs Aleve because of the pain. In May her hemoglobin was 11.8. Today it was 7.4 then 6.6. MCV and MCH are normal, stool occult blood test was positive. Her blood pressure is in the soft side 101/67, heart rate was 99. Which may indicate that the patient has significant blood loss. Coagulation panel was normal, platelets were within normal limits. Patient has epigastric tenderness mild rigidity and elevated white count. Patient also reported constipation for the past 3 days which may represent abdominal ileus secondary to possible bowel subtle PUD perforation. Plan: ? Start the patient 2 large IV lines ? Start the patient on pantoprazole 40 mg IV twice daily ? Stat CT abdomen and pelvis, and follow-up on the results, consider starting the patient on antibiotic and consider consulting surgery if CT scan is positive for abdominal perforation. ? Transfuse the patient 2 unit of blood, - H&H posttransfusion. ? Keep hemoglobin above 8 as the patient reported that she has had chest pain in the past and she used to take nitroglycerin sublingual. EKG showed diffuse T wave inversion. Patient has not seen a processing associate in the past. ? Keep the patient n.p.o. for EGD ? Monitor hemoglobin every 12 hours or sooner if clinically indicated -GI consulted:____ -FUP Blood smear:___ #4.6x4.1cm L kidney mass Incidental finding on CT, hyperdense mass posterior margin left kidney Plan: -Recommend elective MRI abdomen kidneys follow-up pre and post contrast to confirm renal tumor #CBD 8mm Plan: -Consider hepatobiliary sonograph FUP #Hypertension VSS currently. Plan: -Consider restarting home amlodipine if BP increases #Chronic back pain Plan - Acetominophen 650mg PO Q6H PRN ? narco 5 Q4HR PRN - Morphine 2mg IVP Q4HR PRN (breakthrough pain) #HX of CVA Hold aspirin due to active bleeding Health Maintenance: Code status: Full DVT prophylaxis: SCDs GI prophylaxis: protonix Diet: NPO Oden: None Lines: PIV Supplemental O2: NC Disposition: med tele Patient seen and reviewed with attending Dr. Aragon and supervising resident Dr. Weaver. Note written by Martin Paz MD PGY-1 Attending Provider Attestation/Addendum I or my resident physicians have discussed care with the ED physician and I have made the decision to admit. I have discussed and was present for the essential components of the history, physical examination, diagnosis, and treatment plan with the resident. I agree with the patient's care as documented by the resident and amended herein by me. Jr Aragon DO. Although this document has been carefully reviewed, there may still be some phonetic and other typographical errors. These errors are purely grammatical due to imperfections in the software program and should not be construed in any way to compromise the substance of the patient's medical care during this visit.
[2025-09-19 17:13] LABS: Hemoglobin 6.6 g/dL (12.0-16.0)
[2025-09-19] MEDS: RINGERS LACTATED 1000 ML 1,000 ML 75 ML IV (17:32)
[2025-09-19 17:41] LABS: Procalcitonin 0.10 ng/ml (0.0-0.49)
[2025-09-19 17:51] LABS: Path Review Blood Smear Sent to Pathologist
[2025-09-19 18:03] LABS: Collection Type, Urine Clean Catch
--- NOTE | 2025-09-19 18:15 | PC.NURSE ---
report given to anni
[2025-09-19 18:28] LABS: Bacteria,Urine 2+; Bilirubin,Urine Negative (Negative); Blood,Urine Trace (Negative); Clarity,Urine Clear (Clear/Hazy); Color,Urine Lt-Yellow (Lt Yel-Yel); Glucose, Urine Negative (Negative); Ketones,Urine Negative (Negative); Leukocyte Esterase,Urine Positive (Negative); Nitrite,Urine Negative (Negative); PH,Urine 6.0 (5.0-7.0); Protein,Urine Negative (Neg - Trace); RBC,Urine 5 /hpf (0-3); Specific Gravity,Urine 1.016 (1.001-1.035); Squamous Epithelial Cell,Urine 5 /hpf (0-5); Urobilinogen,Urine Negative mg/dL (0.0-1.0); WBC,Urine 7 /hpf (0-5)
--- NOTE | 2025-09-19 20:05 | PC.NURSE ---
MedRec not completed due to patient cannot able to recal dose of memantine.
[2025-09-19] MEDS: MORPHINE SULF INJ 4 MG/ML VIAL 2 MG IVP (20:17)
[2025-09-20] VITALS (20 sets, daily range): BP systolic 91–181; BP diastolic 40–80; PULSE 73–92; RESP 15–96; TEMP 36.3–37.2; O2SAT 93–98
[2025-09-20] MEDS: MORPHINE SULF INJ 4 MG/ML VIAL 2 MG IVP ×4 (01:31→17:46)
[2025-09-20 03:12] LABS: Hematocrit 25.6 % (36.0-46.0)
[2025-09-20 03:32] LABS: Hemoglobin 8.3 g/dL (12.0-16.0)
[2025-09-20 06:14] LABS: Basophils # (Auto) 0.1 Thou/mm3 (0.0-0.2); Basophils % (Auto) 1 % (0-2.5); Eosinophils # (Auto) 0.4 Thou/mm3 (0.0-0.5); Eosinophils % (Auto) 3 % (0-10); Hematocrit 26.0 % (36.0-46.0); Hemoglobin 8.1 g/dL (12.0-16.0); Immature Granulocytes Auto 0.04 Thou/mm3 (0.00-0.00); Lymphocytes # (Auto) 3.1 Thou/mm3 (1.0-4.8); Lymphocytes % (Auto) 26 % (10-50); Mean Corpuscular HGB Conc 31.2 g/dl (31.0-37.0); Mean Corpuscular Hemoglobin 29.3 pg (25.0-35.0); Mean Corpuscular Volume 94 fL (80-100); Monocytes # (Auto) 0.7 Thou/mm3 (0.0-0.8); Monocytes % (Auto) 5 % (0-12); Neutrophils # (Auto) 7.9 Thou/mm3 (1.8-7.7); Neutrophils % (Auto) 65 % (37-80); Nucleated Red Blood Cell # 0.02 Thou/mm3 (0.00-0.00); Nucleated Red Blood Cell % 0 /100 WBC (0); Platelet Count 186 Thou/mm3 (140-440); RDW Standard Deviation 57.1 fL (36.4-46.3); Red Blood Count 2.76 Miln/mm3 (4.00-5.20); White Blood Count 12.1 Thou/mm3 (3.6-11.0)
[2025-09-20 06:43] LABS: Glucose Estimated Average 105 mg/dL (80-131); Hemoglobin A1C 5.3 % Hgb (4.8-6.0)
[2025-09-20 06:52] LABS: Alanine Aminotransferase 8 U/L (10-49); Albumin, Serum 3.6 gm/dL (3.4-4.8); Albumin/Globulin Ratio 2.6 (1.2-2.2); Alkaline Phosphatase 65 U/L (46-116); Anion Gap 9 (7-16); Aspartate Amino Transferase 11 U/L (0-34); BUN/Creatinine Ratio 45 Ratio (12-20); Bilirubin,Total 0.4 mg/dL (0.3-1.2); Blood Urea Nitrogen 50 mg/dL (9-23); Calcium 8.9 mg/dL (8.3-10.6); Calcium (Corrected) 9.2 mg/dL (8.5-10.1); Carbon Dioxide 23.1 mMol/L (20.0-31.0); Cardiac Risk Estimate 4.6 RATIO (3.7-5.6); Chloride 113 mMol/L (98-107); Cholesterol 102 mg/dL (132-200); Creatinine (Component) 1.1 mg/dL (0.6-1.3); Estimated Creatinine Clearance 44.0 mL/min (>60); Globulin 1.4 gm/dL (2.3-3.5); Glucose 110 mg/dL (74-106); HDL Cholesterol 22 mg/dL (40-60); LDL Cholesterol,Calculated 38 mg/dL (0-130); Magnesium 2.3 mg/dL (1.6-2.6); Osmolality,Calculated 303 (275-295); Phosphorous 2.5 mg/dL (2.4-5.1); Potassium 4.7 mMol/L (3.4-5.1); Sodium 145 mMol/L (136-145); Thyroid Stimulating Hormone 1.51 uIU/mL (0.55-4.78); Total Protein 5.0 gm/dL (5.7-8.2); Triglycerides 212 mg/dL (30-150); eGFR 51 See Note
[2025-09-20] MEDS: RINGERS LACTATED 1000 ML 1,000 ML 75 ML IV (08:01)
--- NOTE | 2025-09-20 10:01 | PC.SS ---
Patient is a 80 Year old female admitted for PNA. SS met with patient at bedside to discuss discharge plan and verify demographic information, patient reports she lives at home with her . Patient reports her daughter, Kendy Melendez is her surrogate decision maker, [phone]. SS inquired about the patient being able to perform her own ADL?s at home. Patient reports that she is independent with her ADL?s. Patient reports She does not utilize any source of DME to assist with ambulation. Choice of pharmacy is [facility]. PCP is Franc Lowry. PCP: Franc Lowry Discharge plan: Home
--- NOTE | 2025-09-20 11:41 | PC.PT ---
Attempt to initiate PT evaluation Male visitor at bedside. Patient states she has been ambulating to the restroom without difficulty. No further needs at this time. Will cancel PT evaluation. RN made aware.
--- NOTE | 2025-09-20 13:30 | ESPR_ITS ---
Documentation for date of: 09/20/25 No overnight events. Patient is currently NPO for endoscopy with gastroenterology. Patient's blood pressure has been within normal limits, given acute blood loss anemia, currently holding some anti-hypertensive medication. Resume Amlodipine AM on 09/21/2025 and Benazepril continue to hold. Iron tablets tomorrow. Continue 40 mg BID for acute blood loss anemia and blood loss anemia. Holding Aspirin. NPO. Small ice chips, ok. Medication may be taken with small sips. Senior Resident Attestation: I have discussed the case with supervising physician and general internist and physician leader physician involved in the care of patient. I personally saw and examined patient and discussed the assessment and plan with the entire medical team, including attending. I agree with assessment and plan as documented below. - The patient's plan was discussed with attending Dr. Mahesh Weaver MD PGY2 Internal Medicine Subjective Subjective Interval history: NAEON, VSS, labs notable for improvement in Hbg 8.1 after Pt received x2 packed RBCs yesterday, Hbg 6.6. WBC 12.1. BUN 50. AST/ALT/ALP wnl. Lipid panel triglycerides 212, cholesterol 102, LDL 38, and HDL 22. At bedside patient complained of periumbilical pain. Notified patient about EGD scheduled for tonight. Will f/u with any results from GI speacialist. Exam Vital Signs Temp Pulse Resp BP Pulse Ox O2 Del Method 97.3 F 74 18 120/61 95 Room Air 09/20/25 07:58 09/20/25 08:00 09/20/25 07:58 09/20/25 07:58 09/20/25 07:58 09/20/25 07:58 Narrative Exam General: No acute distress, well nourished Eye: PERRL, EOMI, normal conjunctiva, no scleral icterus HENT: Normocephalic, atraumatic, normal hearing, pink and moist mucous membranes, no oral lesions in mouth, throat shows no erythema Neck: Supple, non-tender, no JVD, no lymphadenopathy Lungs: Clear to auscultation bilaterally, non-labored respirations, symmetric chest rise, no use of accessory muscles Heart: Normal S1 and S2, no S3 or S4 appreciated. Normal rate and regular rhythm, no murmurs, rubs gallops, or edema. Peripheral pulses intact bilaterally, capillary refill brisk distally Abdomen: Soft, periumbilical TTP, non-distended, normal bowel sounds. No guarding or rebound tenderness. Musculoskeletal: Normal range of motion and strength. Skin: Skin is warm, dry, no rashes or lesions. Neurologic: Alert, awake and oriented x3. CN II-XII grossly intact. No focal neuro deficits. No signs of meningeal irritation noted. Psychiatric: Cooperative, appropriate mood and affect Objective Labs 09/21/25 05:21 09/21/25 05:21 Labs: Laboratory Results - last 24 hr 09/19/25 09/19/25 09/19/25 11:19 15:45 16:32 WBC 17.1 H RBC 2.17 L Hgb 6.6 L* Hct 21.1 L* MCV 97 MCH 30.4 MCHC 31.3 RDW Std Deviation 51.9 H Plt Count 257 D Neut % (Auto) 68 Lymph % (Auto) 25 [place] % (Auto) 5 Eos % (Auto) 1 Baso % (Auto) 1 Neut # (Auto) 11.6 H Lymph # (Auto) 4.3 [place] # (Auto) 0.9 H Eos # (Auto) 0.2 Baso # (Auto) 0.1 Immature Gran # (Auto) 0.10 H Absolute Nucleated RBC 0.02 H Immature Gran % 1 H Nucleated RBC % 0 Smear Path Review Sent to Pathologist Sodium Potassium Chloride Carbon Dioxide Anion Gap BUN Creatinine Estim Creat Clear Calc eGFR BUN/Creatinine Ratio Glucose Estimated Ave Glu mg/dL Hemoglobin A1c Calculated Osmolality Calcium Corrected Calcium Phosphorus Magnesium Total Bilirubin AST ALT Alkaline Phosphatase Troponin I 0.033 Total Protein Albumin Globulin Albumin/Globulin Ratio Triglycerides Cholesterol LDL Cholesterol, Calc HDL Cholesterol Cholesterol/HDL Ratio Procalcitonin 0.10 TSH Ur Collection Type Clean Catch Urine Color Lt-Yellow Urine Clarity Clear Urine pH 6.0 Ur Specific [place] 1.016 Urine Protein Negative Urine Glucose (UA) Negative Urine Ketones Negative Urine Blood Trace Urine Nitrite Negative Urine Bilirubin Negative Urine Urobilinogen (Auto) Negative Ur Leukocyte Esterase Positive Urine RBC 5 H Urine WBC 7 H Ur Squamous Epith Cells 5 Urine Bacteria 2+ A Blood Type B Positive Antibody Screen NEGATIVE Crossmatch See Detail Blood Bank Wristband ID Yes 09/20/25 09/20/25 02:34 05:12 WBC 12.1 H D RBC 2.76 L Hgb 8.3 L D 8.1 L Hct 25.6 L 26.0 L MCV 94 MCH 29.3 MCHC 31.2 RDW Std Deviation 57.1 H Plt Count 186 D Neut % (Auto) 65 Lymph % (Auto) 26 [place] % (Auto) 5 Eos % (Auto) 3 Baso % (Auto) 1 Neut # (Auto) 7.9 H Lymph # (Auto) 3.1 [place] # (Auto) 0.7 Eos # (Auto) 0.4 Baso # (Auto) 0.1 Immature Gran # (Auto) 0.04 H Absolute Nucleated RBC 0.02 H Immature Gran % 0 Nucleated RBC % 0 Smear Path Review Sodium 145 Potassium 4.7 Chloride 113 H Carbon Dioxide 23.1 Anion Gap 9 BUN 50 H Creatinine 1.1 Estim Creat Clear Calc 44.0 L eGFR 51 L BUN/Creatinine Ratio 45 H Glucose [address] Glu mg/dL 105 Hemoglobin A1c 5.3 Calculated Osmolality 303 H Calcium 8.9 Corrected Calcium 9.2 Phosphorus 2.5 Magnesium 2.3 Total Bilirubin 0.4 AST 11 ALT 8 L Alkaline Phosphatase 65 Troponin I Total Protein 5.0 L Albumin 3.6 D Globulin 1.4 L Albumin/Globulin Ratio 2.6 H Triglycerides 212 H Cholesterol 102 L LDL Cholesterol, Calc 38 HDL Cholesterol 22 L Cholesterol/HDL Ratio 4.6 Procalcitonin TSH 1.51 Ur Collection Type Urine Color Urine Clarity Urine pH Ur Specific [place] Urine Protein Urine Glucose (UA) Urine Ketones Urine Blood Urine Nitrite Urine Bilirubin Urine Urobilinogen (Auto) Ur Leukocyte Esterase Urine RBC Urine WBC Ur Squamous Epith Cells Urine Bacteria Blood Type Antibody Screen Crossmatch Blood Bank Wristband ID Quality Measures Quality Measures none Advance care planning discussed with:: patient Assessment & Plan Assessment Current Active Medications: Generic Name Dose Route Start Last Admin Trade Name Freq PRN Reason Stop Dose Admin Acetaminophen 650 mg 09/19/25 16:54 Acetaminophen 325 Mg Tablet PO 10/19/25 16:53 Q6H PRN Fever >100.4 or pain 1-3 Hydrocodone Bitart/Acetaminophen 1 tab 09/20/25 11:17 Hydrocodone/Apap 5/325 Tablet PO 09/24/25 16:58 Q4HR PRN PAIN SCALE 4-10(Mod-Sev Lactated Ringer's 1,000 mls @ 75 mls/hr 09/19/25 17:00 09/20/25 08:01 Lactated Ringers IV 09/20/25 19:39 75 mls/hr .[id number] HOME Administration Labetalol HCl 10 mg 09/19/25 23:04 Labetalol Inj 5 Mg/Ml Vial 20 Ml IVP 10/19/25 23:03 Q4HR PRN Hypertension Morphine Sulfate 2 mg 09/20/25 11:17 09/20/25 12:06 Morphine Sulf Inj 4 Mg/Ml Vial IVP 09/24/25 16:58 2 mg Q4HR PRN Administration BREAKTHROUGH PAIN Ondansetron HCl 4 mg 09/19/25 16:54 Ondansetron Inj 2 Mg/Ml Inj 2 Ml IVP 10/19/25 16:53 Q6H PRN NAUSEA OR VOMITING Protocol Pantoprazole Sodium 40 mg 09/19/25 21:00 09/20/25 08:00 Pantoprazole Inj 40 Mg Vial IVP 10/19/25 20:59 40 mg BID HOME Administration Sennosides 1 tab 09/19/25 16:54 Senna Tablet PO 10/19/25 16:53 QDAY PRN constipation Protocol Plan An 80 years old female patient, poor historian, known case of hypertension, CVA, chronic back pain and Back surgery, multiple intra-abdominal surgeries, was sent to the ED by her PCP after she was found to have abnormal blood test, also found to have melena and coffee ground emesis. Admitted for GI bleed work up. Found to have hgb 6.6 given 2 units of pRBCs in ED. #Acute blood loss anemia #Upper GI bleed was likely secondary to peptic ulcer #Lower GI bleed most likely secondary to upper GI bleed Acute abdominal pain most likely secondary to peptic ulcer disease versus Ariana-jean $, vs less likely peptic ulcer perforation vs malignancy however no concerning mass or structure seen on CTAP. Patient presented to her PCP secondary to generalized fatigue and weakness. Patient reported that for the past 9 days she has been having abdominal pain. Her neighbor reported that she has been taking excessive amount of NSAIDs Aleve because of the pain. In May her hemoglobin was 11.8. Today it was 7.4 then 6.6. MCV and MCH are normal, stool occult blood test was positive. Her blood pressure is in the soft side 101/67, heart rate was 99. Which may indicate that the patient has significant blood loss. Coagulation panel was normal, platelets were within normal limits. Patient has epigastric tenderness mild rigidity and elevated white count. Patient also reported constipation for the past 3 days which may represent abdominal ileus secondary to possible bowel subtle PUD perforation. 09/20 Hbg 8.1 Plan: ? Start the patient 2 large IV lines ? Start the patient on pantoprazole 40 mg IV twice daily ? Stat CT abdomen and pelvis, and follow-up on the results, consider starting the patient on antibiotic and consider consulting surgery if CT scan is positive for abdominal perforation. ? Transfuse x2 packed RBCs - H&H posttransfusion. ? Keep hemoglobin above 8 as the patient reported that she has had chest pain in the past and she used to take nitroglycerin sublingual. EKG showed diffuse T wave inversion. Patient has not seen a manager environmental in the past. ? Keep the patient n.p.o. for EGD ? Monitor hemoglobin every 12 hours or sooner if clinically indicated ? CTM Hbg stable 09/20 ? GI consulted, awaiting EGD planned for tonight 09/20 ? FUP Blood smear pending, sent to pathologist 09/19 #Abnormal CT finding #4.6x4.1cm L kidney mass Incidental finding on CT, hyperdense mass posterior margin left kidney Plan: -Recommend elective MRI abdomen kidneys follow-up pre and post contrast to confirm renal tumor #Abnormal US finding #CBD 8mm Plan: -Consider hepatobiliary sonograph FUP #Hypertension VSS currently. Plan: -Consider restarting home amlodipine if BP increases #Chronic back pain Plan - Acetominophen 650mg PO Q6H PRN ? narco 5 Q4HR PRN - Morphine 2mg IVP Q4HR PRN (breakthrough pain) #HX of CVA Hold aspirin due to active bleeding Health Maintenance: Code status: Full DVT prophylaxis: SCDs GI prophylaxis: protonix Diet: NPO Oden: None Lines: PIV Supplemental O2: NC Disposition: med tele Patient seen and reviewed with attending Dr. Aragon and supervising resident Dr. Meg Bergeron, DO PGY-1 Attending Provider Attestation/Addendum I have discussed and was present for the essential components of the history, physical examination, diagnosis, and treatment plan with the resident. I agree with the patient's care as documented by the resident and amended herein by me. Jr Aragon DO. Although this document has been carefully reviewed, there may still be some phonetic and other typographical errors. These errors are purely grammatical due to imperfections in the software program and should not be construed in any way to compromise the substance of the patient's medical care during this visit.
[2025-09-20] MEDS: ACETAMINOPHEN IVPB 1,000 MG/100 ML VIAL 250 MG IV (15:51)
--- NOTE | 2025-09-20 17:50 | PC.NURSE ---
pt went with plastic surgery manager for EGD
--- NOTE | 2025-09-20 18:28 | SUR.PHASEI ---
1828: Pt. wakes to name then drifts back to sleep, vitals stable, breathing unlabored, no complaint of pain or nausea, no dressing in place, no active bleed noted, report received from Loretta BOWDEN.
--- NOTE | 2025-09-20 18:58 | SUR.PHASEI ---
Pt. AAOx4, vitals stable, breathing unlabored, no complaint of pain or nausea, no dressing in place, no active bleed noted, pt. tolerated sips of water well, gave report to floor nurse prior to transfer to room.
[2025-09-20] MEDS: NA SU/NAHCO3/KC/PEG (Golytely) 4,000 ML BTL 4000 ML PO (19:56)
[2025-09-20] MEDS: HYDROcodone/APAP 5/325 TABLET 1 TAB PO (20:23)
[2025-09-21] VITALS (9 sets, daily range): BP systolic 121–152; BP diastolic 57–85; PULSE 66–85; RESP 16–95; TEMP 36.3–37; O2SAT 93–96
[2025-09-21] MEDS: HYDROcodone/APAP 5/325 TABLET 1 TAB PO ×5 (02:52→23:58)
[2025-09-21 06:01] LABS: Basophils # (Auto) 0.1 Thou/mm3 (0.0-0.2); Basophils % (Auto) 1 % (0-2.5); Eosinophils # (Auto) 0.3 Thou/mm3 (0.0-0.5); Eosinophils % (Auto) 4 % (0-10); Hematocrit 25.6 % (36.0-46.0); Immature Granulocytes Auto 0.04 Thou/mm3 (0.00-0.00); Lymphocytes # (Auto) 2.3 Thou/mm3 (1.0-4.8); Lymphocytes % (Auto) 28 % (10-50); Mean Corpuscular HGB Conc 31.6 g/dl (31.0-37.0); Mean Corpuscular Hemoglobin 30.2 pg (25.0-35.0); Mean Corpuscular Volume 96 fL (80-100); Monocytes # (Auto) 0.5 Thou/mm3 (0.0-0.8); Monocytes % (Auto) 6 % (0-12); Neutrophils # (Auto) 5.0 Thou/mm3 (1.8-7.7); Neutrophils % (Auto) 61 % (37-80); Nucleated Red Blood Cell # 0.02 Thou/mm3 (0.00-0.00); Nucleated Red Blood Cell % 0 /100 WBC (0); Platelet Count 192 Thou/mm3 (140-440); RDW Standard Deviation 55.9 fL (36.4-46.3); Red Blood Count 2.68 Miln/mm3 (4.00-5.20); White Blood Count 8.2 Thou/mm3 (3.6-11.0)
[2025-09-21 06:02] LABS: Hemoglobin 8.1 g/dL (12.0-16.0)
[2025-09-21 06:40] LABS: Alanine Aminotransferase 9 U/L (10-49); Albumin, Serum 3.6 gm/dL (3.4-4.8); Albumin/Globulin Ratio 2.3 (1.2-2.2); Alkaline Phosphatase 74 U/L (46-116); Anion Gap 10 (7-16); Aspartate Amino Transferase 16 U/L (0-34); BUN/Creatinine Ratio 29 Ratio (12-20); Bilirubin,Total 0.4 mg/dL (0.3-1.2); Blood Urea Nitrogen 29 mg/dL (9-23); Calcium 8.9 mg/dL (8.3-10.6); Calcium (Corrected) 9.2 mg/dL (8.5-10.1); Carbon Dioxide 27.2 mMol/L (20.0-31.0); Chloride 109 mMol/L (98-107); Creatinine (Component) 1.0 mg/dL (0.6-1.3); Estimated Creatinine Clearance 48.4 mL/min (>60); Globulin 1.6 gm/dL (2.3-3.5); Glucose 105 mg/dL (74-106); Magnesium 2.2 mg/dL (1.6-2.6); Osmolality,Calculated 296 (275-295); Phosphorous 2.7 mg/dL (2.4-5.1); Potassium 4.0 mMol/L (3.4-5.1); Sodium 146 mMol/L (136-145); Total Protein 5.2 gm/dL (5.7-8.2); eGFR 57 See Note
--- NOTE | 2025-09-21 08:56 | ESPR_ITS ---
Documentation for date of: 09/21/25 No overnight events. Patient examined at bedside. Patient is alert and orientated X 3, but appears apprehensive about colonoscopy but agreeable. Education was provided on colonoscopy procedure. EGD overnight on 09/20/2025 noted to for Grade I esophageal varices and gastritis. Acute blood loss anemia does not explain esophageal varices. Continue Golytle. Continue amlodipine and hold home dose of Benazipril as patient is on Golytle and has had SBP <180. Consider Lisinopril if SBP rises. Single dose of keterolac and metoclopramide given for headache. - The patient's plan was discussed with attending Dr. Mahesh Weaver MD PGY2 Internal Medicine Subjective Subjective Interval history: S/p EGD yesterday showed grade 1 esophageal varices, gastritis with erythema and normal 2nd portion of duodenum, bleeding source is obscure planning for colonoscopy tonight. Patient examined bedside, labs reviewed. She has no complaints but would like to go home. Patient understands that she has colonoscopy tonight, is drinking the golytely. Exam Vital Signs Temp Pulse Resp BP Pulse Ox O2 Del Method O2 Flow Rate 97.3 F 80 18 147/57 H 93 L Room Air 3 09/21/25 08:00 09/21/25 08:30 09/21/25 08:00 09/21/25 08:30 09/21/25 08:00 09/21/25 08:00 09/20/25 18:20 Narrative Exam General: No acute distress, well nourished Eye: PERRL, EOMI, normal conjunctiva, no scleral icterus HENT: Normocephalic, atraumatic, normal hearing, pink and moist mucous membranes, no oral lesions in mouth, throat shows no erythema Neck: Supple, non-tender, no JVD, no lymphadenopathy Lungs: Clear to auscultation bilaterally, non-labored respirations, symmetric chest rise, no use of accessory muscles Heart: Normal S1 and S2, no S3 or S4 appreciated. Normal rate and regular rhythm, no murmurs, rubs gallops, or edema. Peripheral pulses intact bilaterally, capillary refill brisk distally Abdomen: Soft, NTTP, non-distended, normal bowel sounds. No guarding or rebound tenderness. Musculoskeletal: Normal range of motion and strength. Skin: Skin is warm, dry, no rashes or lesions. Neurologic: Alert, awake and oriented x3. CN II-XII grossly intact. No focal neuro deficits. No signs of meningeal irritation noted. Psychiatric: Cooperative, appropriate mood and affect Objective Labs 09/21/25 05:21 09/21/25 05:21 Labs: Laboratory Results - last 24 hr 09/21/25 05:21 WBC 8.2 RBC 2.68 L Hgb 8.1 L Hct 25.6 L MCV 96 MCH 30.2 MCHC 31.6 RDW Std Deviation 55.9 H Plt Count 192 Neut % (Auto) 61 Lymph % (Auto) 28 [place] % (Auto) 6 Eos % (Auto) 4 Baso % (Auto) 1 Neut # (Auto) 5.0 Lymph # (Auto) 2.3 [place] # (Auto) 0.5 Eos # (Auto) 0.3 Baso # (Auto) 0.1 Immature Gran # (Auto) 0.04 H Absolute Nucleated RBC 0.02 H Immature Gran % 1 H Nucleated RBC % 0 Sodium 146 H Potassium 4.0 D Chloride 109 H Carbon Dioxide 27.2 Anion Gap 10 BUN 29 H Creatinine 1.0 Estim Creat Clear Calc 48.4 L eGFR 57 L BUN/Creatinine Ratio 29 H Glucose 105 Calculated Osmolality 296 H Calcium 8.9 Corrected Calcium 9.2 Phosphorus 2.7 Magnesium 2.2 Total Bilirubin 0.4 AST 16 ALT 9 L Alkaline Phosphatase 74 Total Protein 5.2 L Albumin 3.6 Globulin 1.6 L Albumin/Globulin Ratio 2.3 H Quality Measures Quality Measures none Advance care planning discussed with:: patient Assessment & Plan Assessment Current Active Medications: Generic Name Dose Route Start Last Admin Trade Name Freq PRN Reason Stop Dose Admin Acetaminophen 650 mg 09/19/25 16:54 Acetaminophen 325 Mg Tablet PO 10/19/25 16:53 Q6H PRN Fever >100.4 or pain 1-3 Hydrocodone Bitart/Acetaminophen 1 tab 09/20/25 11:17 09/21/25 08:34 Hydrocodone/Apap 5/325 Tablet PO 09/24/25 16:58 1 tab Q4HR PRN Administration PAIN SCALE 4-10(Mod-Sev Amlodipine Besylate 10 mg 09/21/25 09:00 09/21/25 08:30 Amlodipine Besylate 5 Mg Tablet PO 10/21/25 08:59 10 mg QDAY HOME Administration Labetalol HCl 10 mg 09/19/25 23:04 Labetalol Inj 5 Mg/Ml Vial 20 Ml IVP 10/19/25 23:03 Q4HR PRN Hypertension Morphine Sulfate 2 mg 09/20/25 11:17 09/20/25 17:46 Morphine Sulf Inj 4 Mg/Ml Vial IVP 09/24/25 16:58 2 mg Q4HR PRN Administration BREAKTHROUGH PAIN Ondansetron HCl 4 mg 09/19/25 16:54 Ondansetron Inj 2 Mg/Ml Inj 2 Ml IVP 10/19/25 16:53 Q6H PRN NAUSEA OR VOMITING Protocol Pantoprazole Sodium 40 mg 09/19/25 21:00 09/21/25 08:30 Pantoprazole Inj 40 Mg Vial IVP 10/19/25 20:59 40 mg BID HOME Administration Sennosides 1 tab 09/19/25 16:54 Senna Tablet PO 10/19/25 16:53 QDAY PRN constipation Protocol Plan An 80 years old female patient, poor historian, known case of hypertension, CVA, chronic back pain and Back surgery, multiple intra-abdominal surgeries, was sent to the ED by her PCP after she was found to have abnormal blood test, also found to have melena and coffee ground emesis. Admitted for GI bleed work up. Found to have hgb 6.6 given 2 units of pRBCs in ED. EGD showed grade 1 esophageal varices, bleeding source obscure, plan for colonoscopy tonight. #Acute blood loss anemia #Lower GI bleed #Upper GI bleed (G1 varices) Acute abdominal pain most likely secondary to peptic ulcer disease versus Ariana-jean $, vs less likely peptic ulcer perforation vs malignancy however no concerning mass or structure seen on CTAP. Patient presented to her PCP secondary to generalized fatigue and weakness. Patient reported that for the past 9 days she has been having abdominal pain. Her neighbor reported that she has been taking excessive amount of NSAIDs Aleve because of the pain. In May her hemoglobin was 11.8. Today it was 7.4 then 6.6. MCV and MCH are normal, stool occult blood test was positive. Her blood pressure is in the soft side 101/67, heart rate was 99. Which may indicate that the patient has significant blood loss. Coagulation panel was normal, platelets were within normal limits. Patient has epigastric tenderness mild rigidity and elevated white count. Patient also reported constipation for the past 3 days which may represent abdominal ileus secondary to possible bowel subtle PUD perforation. 09/20 Hbg 8.1 09/20 EGD grade 1 esophageal varices, bleeding source obscure 09/21 Alexa plan for colonoscopy Plan: ? Start the patient 2 large IV lines ? Start the patient on pantoprazole 40 mg IV twice daily ? Stat CT abdomen and pelvis, and follow-up on the results, consider starting the patient on antibiotic and consider consulting surgery if CT scan is positive for abdominal perforation. ? Transfuse x2 packed RBCs - H&H posttransfusion. ? Keep hemoglobin above 8 as the patient reported that she has had chest pain in the past and she used to take nitroglycerin sublingual. EKG showed diffuse T wave inversion. Patient has not seen a maintenance and utilities supervisor in the past. ? Keep the patient n.p.o. for EGD ? Monitor hemoglobin every 12 hours or sooner if clinically indicated ? CTM Hbg stable 09/20 ? GI consulted, awaiting EGD planned for tonight 09/20 ? FUP Blood smear pending, sent to pathologist 09/19 #Abnormal CT finding #4.6x4.1cm L kidney mass Incidental finding on CT, hyperdense mass posterior margin left kidney Plan: -Recommend elective MRI abdomen kidneys follow-up pre and post contrast to confirm renal tumor #Abnormal US finding #CBD 8mm Plan: -Consider hepatobiliary sonograph FUP #Hypertension VSS currently. Plan: -Amlodipine 10mg PO QD -Labetalol 10mg IVP Q4HR PRN #Chronic back pain Plan - Acetominophen 650mg PO Q6H PRN ? narco 5 Q4HR PRN - Morphine 2mg IVP Q4HR PRN (breakthrough pain) - Ketorolac 15mg IVPx1 #HX of CVA Hold aspirin due to active bleeding Health Maintenance: Code status: Full DVT prophylaxis: SCDs GI prophylaxis: protonix Diet: CLD Oden: None Lines: PIV Supplemental O2: NC Disposition: med tele Patient seen and reviewed with attending Dr. Aragon and supervising resident Dr. Meg Paz MD PGY-1 Attending Provider Attestation/Addendum I have discussed and was present for the essential components of the history, physical examination, diagnosis, and treatment plan with the resident. I agree with the patient's care as documented by the resident and amended herein by me. Jr Aragon DO. Although this document has been carefully reviewed, there may still be some phonetic and other typographical errors. These errors are purely grammatical due to imperfections in the software program and should not be construed in any way to compromise the substance of the patient's medical care during this visit. Patient seen and evaluated this AM. No acute events overnight, vital signs stable, patient afebrile, grade 1 varices and gastritis was found on EGD, colonoscopy is pending considering there was no obvious signs of upper GI bleed. Hemoglobin stable today. Of note, a 4.6 x 4.1 cm hyperdense mass posterior margin left kidney was found incidentally on CT abdomen pelvis. Elective MRI is recommended for the patient, this was explained to her today and will be further documented in discharge instructions when she is ready to go home.
[2025-09-21] MEDS: METOCLOPRAMIDE INJ 5 MG/ML VIAL 2 ML IVP (10:53)
[2025-09-21] MEDS: KETOROLAC INJ 30 MG/ML VIAL 15 MG IVP (10:54)
--- NOTE | 2025-09-21 16:16 | PC.SS ---
Rounding note: Colonoscopy pending for today 09/21/25. Discharging home when medically clear.
--- NOTE | 2025-09-21 18:40 | ESPR_ITS ---
Documentation for date of: 09/21/25 Subjective Subjective Interval history: GoLytely prep in progress colonoscopy canceled because patient is not clear Additional GoLytely Exam Vital Signs Temp Pulse Resp BP Pulse Ox O2 Del Method O2 Flow Rate 97.6 F 74 18 146/72 H 94 L Room Air 3 09/21/25 16:00 09/21/25 16:00 09/21/25 16:00 09/21/25 16:00 09/21/25 16:00 09/21/25 16:00 09/20/25 18:20 Objective Labs 09/21/25 05:21 09/21/25 05:21 Labs: Laboratory Results - last 24 hr 09/21/25 05:21 WBC 8.2 RBC 2.68 L Hgb 8.1 L Hct 25.6 L MCV 96 MCH 30.2 MCHC 31.6 RDW Std Deviation 55.9 H Plt Count 192 Neut % (Auto) 61 Lymph % (Auto) 28 [place] % (Auto) 6 Eos % (Auto) 4 Baso % (Auto) 1 Neut # (Auto) 5.0 Lymph # (Auto) 2.3 [place] # (Auto) 0.5 Eos # (Auto) 0.3 Baso # (Auto) 0.1 Immature Gran # (Auto) 0.04 H Absolute Nucleated RBC 0.02 H Immature Gran % 1 H Nucleated RBC % 0 Sodium 146 H Potassium 4.0 D Chloride 109 H Carbon Dioxide 27.2 Anion Gap 10 BUN 29 H Creatinine 1.0 Estim Creat Clear Calc 48.4 L eGFR 57 L BUN/Creatinine Ratio 29 H Glucose 105 Calculated Osmolality 296 H Calcium 8.9 Corrected Calcium 9.2 Phosphorus 2.7 Magnesium 2.2 Total Bilirubin 0.4 AST 16 ALT 9 L Alkaline Phosphatase 74 Total Protein 5.2 L Albumin 3.6 Globulin 1.6 L Albumin/Globulin Ratio 2.3 H Impressions Impression: Acute posthemorrhagic anemia Continue GoLytely prep for a possible colonoscopy tomorrow Assessment & Plan Time Spent With Patient Time: Total time spent is greater than 50% in coordination of care (as documented) at patient's floor/unit and/or counseling patient:
[2025-09-22] VITALS (22 sets, daily range): BP systolic 127–194; BP diastolic 62–110; PULSE 73–112; RESP 13–23; TEMP 36.1–37.1; O2SAT 93–98
--- NOTE | 2025-09-22 03:17 | PC.NURSE ---
Pt having a headache offered Tylenol but pt refused. She said Tylenol makes her sick and will wait for [place].
[2025-09-22] MEDS: HYDROcodone/APAP 5/325 TABLET 1 TAB PO ×4 (03:59→22:29)
[2025-09-22 06:24] LABS: Basophils # (Auto) 0.0 Thou/mm3 (0.0-0.2); Basophils % (Auto) 0 % (0-2.5); Eosinophils # (Auto) 0.2 Thou/mm3 (0.0-0.5); Eosinophils % (Auto) 2 % (0-10); Hematocrit 26.6 % (36.0-46.0); Immature Granulocytes Auto 0.03 Thou/mm3 (0.00-0.00); Lymphocytes # (Auto) 2.4 Thou/mm3 (1.0-4.8); Lymphocytes % (Auto) 26 % (10-50); Mean Corpuscular HGB Conc 32.0 g/dl (31.0-37.0); Mean Corpuscular Hemoglobin 30.0 pg (25.0-35.0); Mean Corpuscular Volume 94 fL (80-100); Monocytes # (Auto) 0.6 Thou/mm3 (0.0-0.8); Monocytes % (Auto) 6 % (0-12); Neutrophils # (Auto) 6.2 Thou/mm3 (1.8-7.7); Neutrophils % (Auto) 65 % (37-80); Nucleated Red Blood Cell # 0.00 Thou/mm3 (0.00-0.00); Nucleated Red Blood Cell % 0 /100 WBC (0); Platelet Count 222 Thou/mm3 (140-440); RDW Standard Deviation 52.2 fL (36.4-46.3); Red Blood Count 2.83 Miln/mm3 (4.00-5.20); White Blood Count 9.5 Thou/mm3 (3.6-11.0)
[2025-09-22 06:25] LABS: Hemoglobin 8.5 g/dL (12.0-16.0)
[2025-09-22 06:41] LABS: Alanine Aminotransferase 13 U/L (10-49); Albumin, Serum 4.0 gm/dL (3.4-4.8); Albumin/Globulin Ratio 2.5 (1.2-2.2); Alkaline Phosphatase 83 U/L (46-116); Anion Gap 9 (7-16); Aspartate Amino Transferase 18 U/L (0-34); BUN/Creatinine Ratio 15 Ratio (12-20); Bilirubin,Total 0.4 mg/dL (0.3-1.2); Blood Urea Nitrogen 15 mg/dL (9-23); Calcium 9.2 mg/dL (8.3-10.6); Calcium (Corrected) 9.2 mg/dL (8.5-10.1); Carbon Dioxide 29.6 mMol/L (20.0-31.0); Chloride 107 mMol/L (98-107); Creatinine (Component) 1.0 mg/dL (0.6-1.3); Estimated Creatinine Clearance 48.4 mL/min (>60); Globulin 1.6 gm/dL (2.3-3.5); Glucose 111 mg/dL (74-106); Magnesium 2.0 mg/dL (1.6-2.6); Osmolality,Calculated 292 (275-295); Phosphorous 2.7 mg/dL (2.4-5.1); Potassium 4.1 mMol/L (3.4-5.1); Sodium 146 mMol/L (136-145); Total Protein 5.6 gm/dL (5.7-8.2); eGFR 57 See Note
--- NOTE | 2025-09-22 14:25 | ESPR_ITS ---
Documentation for date of: 09/22/25 No overnight events. Patient examined at bedside. Denied any chief complains this morning. Patient did not complete colonoscopy overnight, as patient still not cleared, continue Golytle. Senior Resident Attestation: I have discussed the case with supervising physician and internet security specialist physician involved in the care of patient. I personally saw and examined patient and discussed the assessment and plan with the entire medical team, including attending. I agree with assessment and plan as documented below. - The patient's plan was discussed with attending Dr. Mahesh Weaver MD PGY2 Internal Medicine Subjective Subjective Interval history: Patient examined bedside, labs reviewed. yesterday was not clear for colonoscopy, attempting again today, drinking the GoLytely. She has no complaints, no nausea, no vomiting, and no blood in stool. She is stooling more clear per her own observation. Exam Vital Signs Temp Pulse Resp BP Pulse Ox O2 Del Method O2 Flow Rate 98.5 F 73 19 140/65 H 97 Room Air 3 09/22/25 12:00 09/22/25 12:00 09/22/25 12:00 09/22/25 12:00 09/22/25 12:00 09/22/25 12:00 09/20/25 18:20 Narrative Exam General: No acute distress, well nourished Eye: PERRL, EOMI, normal conjunctiva, no scleral icterus HENT: Normocephalic, atraumatic, normal hearing, pink and moist mucous membranes, no oral lesions in mouth, throat shows no erythema Neck: Supple, non-tender, no JVD, no lymphadenopathy Lungs: Clear to auscultation bilaterally, non-labored respirations, symmetric chest rise, no use of accessory muscles Heart: Normal S1 and S2, no S3 or S4 appreciated. Normal rate and regular rhythm, no murmurs, rubs gallops, or edema. Peripheral pulses intact bilaterally, capillary refill brisk distally Abdomen: Soft, NTTP, non-distended, normal bowel sounds. No guarding or rebound tenderness. Musculoskeletal: Normal range of motion and strength. Skin: Skin is warm, dry, no rashes or lesions. Neurologic: Alert, awake and oriented x3. CN II-XII grossly intact. No focal neuro deficits. No signs of meningeal irritation noted. Psychiatric: Cooperative, appropriate mood and affect Objective Labs 09/22/25 05:14 09/22/25 05:14 Labs: Laboratory Results - last 24 hr 09/22/25 05:14 WBC 9.5 RBC 2.83 L Hgb 8.5 L Hct 26.6 L MCV 94 MCH 30.0 MCHC 32.0 RDW Std Deviation 52.2 H Plt Count 222 D Neut % (Auto) 65 Lymph % (Auto) 26 [place] % (Auto) 6 Eos % (Auto) 2 Baso % (Auto) 0 Neut # (Auto) 6.2 Lymph # (Auto) 2.4 [place] # (Auto) 0.6 Eos # (Auto) 0.2 Baso # (Auto) 0.0 Immature Gran # (Auto) 0.03 H Absolute Nucleated RBC 0.00 Immature Gran % 0 Nucleated RBC % 0 Sodium 146 H Potassium 4.1 Chloride 107 Carbon Dioxide 29.6 Anion Gap 9 BUN 15 Creatinine 1.0 Estim Creat Clear Calc 48.4 L eGFR 57 L BUN/Creatinine Ratio 15 Glucose 111 H Calculated Osmolality 292 Calcium 9.2 Corrected Calcium 9.2 Phosphorus 2.7 Magnesium 2.0 Total Bilirubin 0.4 AST 18 ALT 13 Alkaline Phosphatase 83 Total Protein 5.6 L Albumin 4.0 Globulin 1.6 L Albumin/Globulin Ratio 2.5 H Quality Measures Quality Measures none Advance care planning discussed with:: patient Assessment & Plan Assessment Current Active Medications: Generic Name Dose Route Start Last Admin Trade Name Freq PRN Reason Stop Dose Admin Acetaminophen 650 mg 09/19/25 16:54 Acetaminophen 325 Mg Tablet PO 10/19/25 16:53 Q6H PRN Fever >100.4 or pain 1-3 Hydrocodone Bitart/Acetaminophen 1 tab 09/20/25 11:17 09/22/25 08:27 Hydrocodone/Apap 5/325 Tablet PO 09/24/25 16:58 1 tab Q4HR PRN Administration PAIN SCALE 4-10(Mod-Sev Amlodipine Besylate 10 mg 09/21/25 09:00 09/22/25 08:28 Amlodipine Besylate 5 Mg Tablet PO 10/21/25 08:59 10 mg QDAY HOME Administration Labetalol HCl 10 mg 09/19/25 23:04 Labetalol Inj 5 Mg/Ml Vial 20 Ml IVP 10/19/25 23:03 Q4HR PRN Hypertension Lisinopril 20 mg 09/22/25 09:00 09/22/25 09:28 Lisinopril 20 Mg Tablet PO 10/22/25 08:59 Not Given QDAY HOME Morphine Sulfate 2 mg 09/20/25 11:17 09/20/25 17:46 Morphine Sulf Inj 4 Mg/Ml Vial IVP 09/24/25 16:58 2 mg Q4HR PRN Administration BREAKTHROUGH PAIN Ondansetron HCl 4 mg 09/19/25 16:54 Ondansetron Inj 2 Mg/Ml Inj 2 Ml IVP 10/19/25 16:53 Q6H PRN NAUSEA OR VOMITING Protocol Pantoprazole Sodium 40 mg 09/19/25 21:00 09/22/25 08:28 Pantoprazole Inj 40 Mg Vial IVP 10/19/25 20:59 40 mg BID HOME Administration Sennosides 1 tab 09/19/25 16:54 Senna Tablet PO 10/19/25 16:53 QDAY PRN constipation Protocol Plan An 80 years old female patient, poor historian, known case of hypertension, CVA, chronic back pain and Back surgery, multiple intra-abdominal surgeries, was sent to the ED by her PCP after she was found to have abnormal blood test, also found to have melena and coffee ground emesis. Admitted for GI bleed work up. Found to have hgb 6.6 given 2 units of pRBCs in ED. EGD showed grade 1 esophageal varices, bleeding source obscure, plan for colonoscopy today after failed attempt yesterday at colonoscopy due to bowels being unclear. #Acute blood loss anemia #Lower GI bleed #Upper GI bleed (G1 varices) Acute abdominal pain most likely secondary to peptic ulcer disease versus Ariana-jean $, vs less likely peptic ulcer perforation vs malignancy however no concerning mass or structure seen on CTAP. Patient presented to her PCP secondary to generalized fatigue and weakness. Patient reported that for the past 9 days she has been having abdominal pain. Her neighbor reported that she has been taking excessive amount of NSAIDs Aleve because of the pain. In May her hemoglobin was 11.8. Today it was 7.4 then 6.6. MCV and MCH are normal, stool occult blood test was positive. Her blood pressure is in the soft side 101/67, heart rate was 99. Which may indicate that the patient has significant blood loss. Coagulation panel was normal, platelets were within normal limits. Patient has epigastric tenderness mild rigidity and elevated white count. Patient also reported constipation for the past 3 days which may represent abdominal ileus secondary to possible bowel subtle PUD perforation. 09/20 Hbg 8.1 09/20 EGD grade 1 esophageal varices, bleeding source obscure 09/21 Alexa plan for colonoscopy Plan: ? Start the patient 2 large IV lines ? Start the patient on pantoprazole 40 mg IV twice daily ? Stat CT abdomen and pelvis, and follow-up on the results, consider starting the patient on antibiotic and consider consulting surgery if CT scan is positive for abdominal perforation. ? Transfuse x2 packed RBCs - H&H posttransfusion. ? Keep hemoglobin above 8 as the patient reported that she has had chest pain in the past and she used to take nitroglycerin sublingual. EKG showed diffuse T wave inversion. Patient has not seen a provider contracting consultant in the past. ? Keep the patient n.p.o. for EGD ? Monitor hemoglobin every 12 hours or sooner if clinically indicated ? CTM Hbg stable 09/20 ? GI consulted, awaiting EGD planned for tonight 09/20 ? FUP Blood smear pending, sent to pathologist 09/19 #Abnormal CT finding #4.6x4.1cm L kidney mass Incidental finding on CT, hyperdense mass posterior margin left kidney Plan: -Recommend elective MRI abdomen kidneys follow-up pre and post contrast to confirm renal tumor #Abnormal US finding #CBD 8mm Plan: -Consider hepatobiliary sonograph FUP ------Chronic Hx------- #Hx of Hypertension VSS currently. Plan: -Amlodipine 10mg PO QD -Labetalol 10mg IVP Q4HR PRN -Lisinopril 20mg PO QD #Hx of Chronic back pain Plan - Acetominophen 650mg PO Q6H PRN ? narco 5 Q4HR PRN - Morphine 2mg IVP Q4HR PRN (breakthrough pain) - Ketorolac 15mg IVPx1 #HX of CVA Hold aspirin due to active bleeding Health Maintenance: Code status: Full DVT prophylaxis: SCDs GI prophylaxis: protonix Diet: CLD Oden: None Lines: PIV Supplemental O2: NC Disposition: med tele Patient seen and reviewed with attending Dr. Aragon and supervising resident Dr. Meg Paz MD PGY-1 Attending Provider Attestation/Addendum I have discussed and was present for the essential components of the history, physical examination, diagnosis, and treatment plan with the resident. I agree with the patient's care as documented by the resident and amended herein by me. Jr Aragon DO. Although this document has been carefully reviewed, there may still be some phonetic and other typographical errors. These errors are purely grammatical due to imperfections in the software program and should not be construed in any way to compromise the substance of the patient's medical care during this visit. Patient seen and evaluated this AM. No acute events overnight, vital signs stable, patient afebrile, grade 1 varices and gastritis was found on EGD, colonoscopy is pending considering there was no obvious signs of upper GI bleed. Hemoglobin stable today. Of note, a 4.6 x 4.1 cm hyperdense mass posterior margin left kidney was found incidentally on CT abdomen pelvis. Elective MRI is recommended for the patient, this was explained to her today and will be further documented in discharge instructions when she is ready to go home.
[2025-09-22] MEDS: hydrALAZINE INJ 20 MG/ML VIAL 10 MG IVP (17:02)
--- NOTE | 2025-09-22 17:23 | SUR.PHASEI ---
Pt. arrived to recovery via gurney, eyes closed, responds to verbal commands, VSS, no c/o pain or nausea at this time, lung sounds clear, equal expansion kayli., flatulence present, report received from Fatou BOWDEN.
--- NOTE | 2025-09-22 17:45 | SUR.PHASEI ---
Called and gave report on pt. s/p colonoscopy to Hussain BOWDEN on M/S unit, pt. is AAOx3, no c/o pain or nausea at this time, pt. is sitting up tolerating sips of water.
--- NOTE | 2025-09-22 17:55 | SUR.PHASEI ---
Pt. transferred to room 368 via ERVIN garcia, no c/o pain or nausea at this time, Hussain BOWDEN assumed care of pt.
--- NOTE | 2025-09-22 17:59 | PD.RESDS ---
Planned Discharge Date 09/23/25 DS: Providers Provider Date of admission: 09/19/25 17:08 Primary care physician: Franc Lowry MD Admitting Provider: Wallace Aragon DO Attending Provider on Admission: Wallace Aragon DO Consults: 09/19/25 15:45 Consult to Gastroenterology Stat Comment: Consulting Provider: Eleonora Garcia 09/19/25 20:02 Referral Respiratory Therapy Routine Comment: Attending Provider on DC: Wallace Aragon DO Discharging Provider: Wallace Aragon DO DS: Diagnosis Problem List Completed Was Problem List Reviewed/Reconciled?: Yes Hospital Course Hospital Course Hospital course: 80 years old female patient, poor historian, known case of hypertension, CVA, chronic back pain and Back surgery, multiple intra-abdominal surgeries, was sent to the ED by her PCP after she was found to have abnormal blood test, also found to have melena and coffee ground emesis. Admitted for GI bleed work up. In the ED, on initial presentation patient was found to have blood pressure of 101/64, pulse rate of 99, respiratory rate 18, other vitals within normal limits,WBC was found to be 19.4, hemoglobin 7.4, MCV and MCH are within normal limits, platelets of 292, coagulation panel within normal limits, potassium 4.7, sodium 144, BUN is 66, serum creatinine 1.3, serum creatinine Grace was 1.2, AST and ALT within normal limits, troponin is normal, lipase normal, blood group is B+ EKG showed diffuse ST segment abnormalities with T wave inversion.chest x-ray was normal. Repeat CBC found to have hgb 6.6 given 2 units of pRBCs and was given IV fluids, Protonix loading dose 80 mg x 1. Hospital course: EGD showed grade 1 esophageal varices, bleeding source remained obscure. Colonoscopy revealing internal hemorrhoids, severe diverticulosis in the sigmoid and descending colon. There were polyps noted but could not be biopsied due to stool burden, plan to repeat colonoscopy in two weeks. The patient's hemoglobin has remained stable. Her hypertension was stable with amlodipine and and lisinopril. Her chronic back pain was managed with tylenol, narco, and morphine. Following colonoscopy patient is safe to discharge, bleeding and hemoglobin has been stable and will follow up with GI, Dr. Garcia, outpatient for repeat colonoscopy in two weeks. Discharge Instructions ? You have been started on Benefiber. Take as directed and mixed with 8 ounces of water to avoid constipation. ? Follow-up with GI, Dr. Garcia in 2 weeks to discuss treatment options - Follow up with your primary care physician within 1 week of discharge. If you do not have a primary care physician, please follow up with the [facility] ([phone]) ? If you experience any new, worsening or persistent symptoms either call your primary doctor, or dial 911 or present to the emergency department. Safe to return home. #Acute blood loss anemia #Lower GI bleed #Upper GI bleed (G1 varices) #Abnormal CT finding #4.6x4.1cm L kidney mass #Abnormal US finding #CBD 8mm #Hx of Hypertension #Hx of Chronic back pain #HX of CVA Patient's plan and care discussed with my attending, Dr. Aragon, and supervising resident MD Martin Ortiz MD Internal Medicine PGY-1 Senior Resident Attestation: I have discussed the case with supervising physician and post graduate intern physician involved in the care of patient. I personally saw and examined patient and discussed the assessment and plan with the entire medical team, including attending. I agree with assessment and plan as documented above. Status at Discharge Functional status at discharge: independent ambulation Overall status at discharge: patient is back to baseline Time Spent with Patient Time attestation: Total time spent providing and/or coordinating discharge services: Time spent: Greater than 30 minutes Exam Vital Signs Temp Pulse Resp BP Pulse Ox O2 Del Method O2 Flow Rate 97.3 F 97 20 145/63 H 95 Room Air 3 09/22/25 17:43 09/22/25 17:43 09/22/25 17:43 09/22/25 17:43 09/22/25 17:43 09/22/25 16:00 09/22/25 17:15 Narrative Exam General: No acute distress, well nourished Eye: PERRL, EOMI, normal conjunctiva, no scleral icterus HENT: Normocephalic, atraumatic, normal hearing, pink and moist mucous membranes, no oral lesions in mouth, throat shows no erythema Neck: Supple, non-tender, no JVD, no lymphadenopathy Lungs: Clear to auscultation bilaterally, non-labored respirations, symmetric chest rise, no use of accessory muscles Heart: Normal S1 and S2, no S3 or S4 appreciated. Normal rate and regular rhythm, no murmurs, rubs gallops, or edema. Peripheral pulses intact bilaterally, capillary refill brisk distally Abdomen: Soft, NTTP, non-distended, normal bowel sounds. No guarding or rebound tenderness. Musculoskeletal: Normal range of motion and strength. Skin: Skin is warm, dry, no rashes or lesions. Neurologic: Alert, awake and oriented x3. CN II-XII grossly intact. No focal neuro deficits. No signs of meningeal irritation noted. Psychiatric: Cooperative, appropriate mood and affect Discharge Plan Plan Patient Disposition: HOME (Self Care) Patient condition on transfer: Stable Care Plan Goals: ? You have been started on Benefiber. Take as directed and mixed with 8 ounces of water to avoid constipation. ? Follow-up with GI, Dr. Garcia in 2 weeks to discuss treatment options - Follow up with your primary care physician within 1 week of discharge. If you do not have a primary care physician, please follow up with the [facility] ([phone]) ? If you experience any new, worsening or persistent symptoms either call your primary doctor, or dial 911 or present to the emergency department. Prescriptions/Referrals Prescriptions/Med Rec: New Benefiber Clear SF (dextrin) 3 gram/3.5 gram powder in packet 1 packet PO QDAY Qty: 28 2RF Rx Instructions: mix into at least 4 oz water or juice before administering Continued Aspirin (Aspir 81) 81 MG TABLET. 162 mg PO QAM Qty: 0 atorvastatin [Lipitor] 10 MG tablet 10 mg PO QAM Qty: 0 amlodipine [Norvasc] 10 MG tablet 10 mg PO QDAY Qty: 0 benazepril [Lotensin] 40 MG tablet 40 mg PO QDAY Qty: 0 Hydrocodone/Acetaminophen (NORCO 7.5/325) 1 TAB tablet 1 tab PO [id number] PRN (Reason: PAIN) Qty: 0 memantine 10 mg tablet 10 mg PO QDAY Patient Comments: TAKE 1 TABLET BY MOUTH DAILY Referrals: Franc Lowry MD [Primary Care Provider, Family Practice] Eleonora Garcia MD [Physician, Gastroenterology] Patient/Caregiver Discharge Instructions Discharge Activity: as per physical therapy Education Materials: Colonoscopy Print Language: Chinese Stand Alone Forms: Viri Award Info., Patient Portal Info Letter Discharge Order Discharge Orders: Discharge (Routine); Ordered 09/23/25 Ordered By: Romina Weaver Quality Discharge Quality Measures VTE prophylaxis MD Attestestation MD Attestation Patient not discharged today as expected, likely discharge tomorrow
[2025-09-22] MEDS: LIDOCAINE 5% 1 PATCH TOP (23:20)
[2025-09-23] VITALS (7 sets, daily range): BP systolic 122–158; BP diastolic 70–78; PULSE 88–102; RESP 18; TEMP 36.3–37.4; O2SAT 95
[2025-09-23] MEDS: HYDROcodone/APAP 5/325 TABLET 1 TAB PO ×3 (01:54→10:39)
[2025-09-23 06:47] LABS: Basophils # (Auto) 0.1 Thou/mm3 (0.0-0.2); Basophils % (Auto) 0 % (0-2.5); Eosinophils # (Auto) 0.2 Thou/mm3 (0.0-0.5); Eosinophils % (Auto) 1 % (0-10); Hematocrit 28.1 % (36.0-46.0); Hemoglobin 9.0 g/dL (12.0-16.0); Immature Granulocytes Auto 0.06 Thou/mm3 (0.00-0.00); Lymphocytes # (Auto) 2.4 Thou/mm3 (1.0-4.8); Lymphocytes % (Auto) 17 % (10-50); Mean Corpuscular HGB Conc 32.0 g/dl (31.0-37.0); Mean Corpuscular Hemoglobin 30.7 pg (25.0-35.0); Mean Corpuscular Volume 96 fL (80-100); Monocytes # (Auto) 1.1 Thou/mm3 (0.0-0.8); Monocytes % (Auto) 8 % (0-12); Neutrophils # (Auto) 10.1 Thou/mm3 (1.8-7.7); Neutrophils % (Auto) 73 % (37-80); Nucleated Red Blood Cell # 0.00 Thou/mm3 (0.00-0.00); Nucleated Red Blood Cell % 0 /100 WBC (0); Platelet Count 248 Thou/mm3 (140-440); RDW Standard Deviation 54.0 fL (36.4-46.3); Red Blood Count 2.93 Miln/mm3 (4.00-5.20); White Blood Count 13.8 Thou/mm3 (3.6-11.0)
[2025-09-23 07:07] LABS: Anion Gap 11 (7-16); BUN/Creatinine Ratio 13 Ratio (12-20); Blood Urea Nitrogen 13 mg/dL (9-23); Calcium 9.4 mg/dL (8.3-10.6); Carbon Dioxide 26.5 mMol/L (20.0-31.0); Chloride 106 mMol/L (98-107); Creatinine (Component) 1.0 mg/dL (0.6-1.3); Estimated Creatinine Clearance 48.4 mL/min (>60); Glucose 124 mg/dL (74-106); Osmolality,Calculated 286 (275-295); Potassium 3.5 mMol/L (3.4-5.1); Sodium 143 mMol/L (136-145); eGFR 57 See Note
--- NOTE | 2025-09-23 09:02 | XR_ITS ---
EXAMINATION: Ankle, right 3 views. Technique: Ankle AP, oblique, lateral 3 views Date and time of exam: September 23, 2025, 0906 hours INDICATIONS: Injury to the ankle today, ankle pain. FINDINGS: Severe osteopenia. No acute fracture No dislocation IMPRESSION: No acute fracture Nonstandard views, recommend follow-up true AP and true lateral ankle
== END 2025-09-23 11:03 | disposition home or self-care (01) | DRG 369 ==
LOC: SERX 13:13 → SERHOLD 17:14 → S3SX 09-20 06:26 → SERHOLD 09-24 07:45 → S3SX 09-24 07:45
PROVIDERS: Nurse Practitioner Primary Care; Specialist; Student in an Organized Health Care Education/Training Program; Admitting Provider Student in an Organized Health Care Education/Training Program; Emergency Provider Family Medicine; PCP Family Medicine; Visit Provider Student in an Organized Health Care Education/Training Program
PROC: 0DJD8ZZ Inspection of Lower Intestinal Tract, Via Natural or Artificial Opening Endoscopic (ICD-10-PCS; CPT 43239; principal; 2025-09-20 17:45)
DX: I85.01 Esophageal varices with bleeding (principal); D62 Acute posthemorrhagic anemia; N17.9 Acute kidney failure, unspecified; K92.0 Hematemesis; K92.1 Melena; I10 Essential (primary) hypertension; G89.29 Other chronic pain; E78.5 Hyperlipidemia, unspecified; K59.00 Constipation, unspecified; N28.89 Other specified disorders of kidney and ureter; K64.8 Other hemorrhoids; K29.71 Gastritis, unspecified, with bleeding; Z86.73 Personal history of transient ischemic attack (TIA), and cerebral infarction without residual deficits; K57.30 Diverticulosis of large intestine without perforation or abscess without bleeding
CPT/HCPCS: 36415; 71045; 73610; 74150; 80048; 80053; 80061; 81001; 83036; 83690; 83735; 84100; 84145; 84443; 84484; 85014; 85018; 85025; 85610; 85730; 86850; 86900; 86901; 86923; 87040; 93005; 93225; 96361; 96374; 96375; 99284; A4217; A4649; J0131; J0360; J1200; J1885; J2175; J2250; J2270; J2405; J2470; J2765; J3010; J3490; J7030; J7120; P9016; A9270

== ENCOUNTER → 2025-09-19 | Outpatient (CLI) | payer MEDICARE, MEDICAID, SELFPAY ==
[2025-09-19 10:27] LABS: Basophils # (Auto) 0.1 Thou/mm3 (0.0-0.2); Basophils % (Auto) 1 % (0-2.5); Eosinophils # (Auto) 0.1 Thou/mm3 (0.0-0.5); Eosinophils % (Auto) 1 % (0-10); Hematocrit 23.5 % (36.0-46.0); Immature Granulocytes Auto 0.11 Thou/mm3 (0.00-0.00); Lymphocytes # (Auto) 4.8 Thou/mm3 (1.0-4.8); Lymphocytes % (Auto) 27 % (10-50); Mean Corpuscular HGB Conc 31.1 g/dl (31.0-37.0); Mean Corpuscular Hemoglobin 30.2 pg (25.0-35.0); Mean Corpuscular Volume 97 fL (80-100); Monocytes # (Auto) 1.3 Thou/mm3 (0.0-0.8); Monocytes % (Auto) 7 % (0-12); Neutrophils # (Auto) 11.6 Thou/mm3 (1.8-7.7); Neutrophils % (Auto) 64 % (37-80); Nucleated Red Blood Cell # 0.00 Thou/mm3 (0.00-0.00); Nucleated Red Blood Cell % 0 /100 WBC (0); Platelet Count 291 Thou/mm3 (140-440); RDW Standard Deviation 50.8 fL (36.4-46.3); Red Blood Count 2.42 Miln/mm3 (4.00-5.20); White Blood Count 18.1 Thou/mm3 (3.6-11.0)
[2025-09-19 10:58] LABS: Hemoglobin 7.3 g/dL (12.0-16.0)
== END | disposition home or self-care (01) ==
PROVIDERS: PCP Family Medicine; Referring Provider Family Medicine; Visit Provider Family Medicine
DX: K92.1 Melena (principal)
CPT/HCPCS: 36415; 85025

== ENCOUNTER → 2025-09-30 | Outpatient (CLI) | payer MEDICARE, MEDICAID, SELFPAY ==
[2025-09-30 13:31] LABS: Basophils # (Auto) 0.1 Thou/mm3 (0.0-0.2); Basophils % (Auto) 1 % (0-2.5); Eosinophils # (Auto) 0.3 Thou/mm3 (0.0-0.5); Eosinophils % (Auto) 2 % (0-10); Hematocrit 29.5 % (36.0-46.0); Hemoglobin 8.9 g/dL (12.0-16.0); Immature Granulocytes Auto 0.05 Thou/mm3 (0.00-0.00); Lymphocytes # (Auto) 1.6 Thou/mm3 (1.0-4.8); Lymphocytes % (Auto) 15 % (10-50); Mean Corpuscular HGB Conc 30.2 g/dl (31.0-37.0); Mean Corpuscular Hemoglobin 28.6 pg (25.0-35.0); Mean Corpuscular Volume 95 fL (80-100); Monocytes # (Auto) 0.7 Thou/mm3 (0.0-0.8); Monocytes % (Auto) 6 % (0-12); Neutrophils # (Auto) 8.0 Thou/mm3 (1.8-7.7); Neutrophils % (Auto) 75 % (37-80); Nucleated Red Blood Cell # 0.00 Thou/mm3 (0.00-0.00); Nucleated Red Blood Cell % 0 /100 WBC (0); Platelet Count 424 Thou/mm3 (140-440); RDW Standard Deviation 53.6 fL (36.4-46.3); Red Blood Count 3.11 Miln/mm3 (4.00-5.20); White Blood Count 10.7 Thou/mm3 (3.6-11.0)
[2025-09-30 13:53] LABS: Albumin, Serum 4.5 gm/dL (3.4-4.8); Anion Gap 11 (7-16); BUN/Creatinine Ratio 14 Ratio (12-20); Blood Urea Nitrogen 18 mg/dL (9-23); Calcium 10.1 mg/dL (8.3-10.6); Calcium (Corrected) 10.1 mg/dL (8.5-10.1); Carbon Dioxide 27.2 mMol/L (20.0-31.0); Chloride 104 mMol/L (98-107); Creatinine (Component) 1.3 mg/dL (0.6-1.3); Glucose 141 mg/dL (74-106); Osmolality,Calculated 287 (275-295); Phosphorous 3.5 mg/dL (2.4-5.1); Potassium 5.2 mMol/L (3.4-5.1); Sodium 142 mMol/L (136-145); eGFR 42 See Note
== END | disposition home or self-care (01) ==
LOC: COPL 12:04
PROVIDERS: PCP Family Medicine; Referring Provider Family Medicine; Visit Provider Family Medicine
DX: K92.2 Gastrointestinal hemorrhage, unspecified (principal)
CPT/HCPCS: 36415; 80069; 85025

== ENCOUNTER → 2025-10-30 | Outpatient (CLI) | payer MEDICARE, MEDICAID, SELFPAY ==
--- NOTE | 2025-10-30 11:00 | XR_ITS ---
Examination: CT right foot, without contrast. 2-D sagittal reconstructions. 2-D coronal reconstructions. 3-D reconstructions. Date and time of exam: October 30, 2025, 1126 hours CTDI: vol (mGy): 5.72 DLP: (mGycm): 156 Technique: Multiple 1.25 mm axial sections of the right foot have been obtained. 2-D sagittal and coronal reconstructions have been obtained. 3-D reconstructions have been obtained. Low dose protocols were performed. One or more of the following dose reduction techniques were used; automated exposure control, adjustment of the mA and/or KV according to patient size, use of iterative reconstruction technique. Findings: Severe osteopenia Distal tibia and distal fibula intact Talus calcaneus remaining tarsal bones intact Significant osteoarthritis first tarsometatarsal joint no Lisfranc tarsometatarsal dislocation Prominent edema surrounding the foot especially dorsally in the foot IMPRESSION: No acute foot fracture If pain persists, recommend follow-up plain films of the right foot
[2025-10-30 13:04] LABS: Basophils # (Auto) 0.1 Thou/mm3 (0.0-0.2); Basophils % (Auto) 1 % (0-2.5); Eosinophils # (Auto) 0.3 Thou/mm3 (0.0-0.5); Eosinophils % (Auto) 3 % (0-10); Hematocrit 30.9 % (36.0-46.0); Immature Granulocytes Auto 0.02 Thou/mm3 (0.00-0.00); Lymphocytes # (Auto) 2.0 Thou/mm3 (1.0-4.8); Lymphocytes % (Auto) 21 % (10-50); Mean Corpuscular HGB Conc 28.5 g/dl (31.0-37.0); Mean Corpuscular Hemoglobin 25.4 pg (25.0-35.0); Mean Corpuscular Volume 89 fL (80-100); Monocytes # (Auto) 0.6 Thou/mm3 (0.0-0.8); Monocytes % (Auto) 7 % (0-12); Neutrophils # (Auto) 6.4 Thou/mm3 (1.8-7.7); Neutrophils % (Auto) 68 % (37-80); Nucleated Red Blood Cell # 0.00 Thou/mm3 (0.00-0.00); Nucleated Red Blood Cell % 0 /100 WBC (0); Platelet Count 369 Thou/mm3 (140-440); RDW Standard Deviation 54.7 fL (36.4-46.3); Red Blood Count 3.47 Miln/mm3 (4.00-5.20); White Blood Count 9.4 Thou/mm3 (3.6-11.0)
[2025-10-30 13:06] LABS: Hemoglobin 8.8 g/dL (12.0-16.0)
[2025-10-30 13:17] LABS: Albumin, Serum 4.5 gm/dL (3.4-4.8); Anion Gap 11 (7-16); BUN/Creatinine Ratio 24 Ratio (12-20); Blood Urea Nitrogen 24 mg/dL (9-23); Calcium 9.5 mg/dL (8.3-10.6); Calcium (Corrected) 9.5 mg/dL (8.5-10.1); Carbon Dioxide 26.2 mMol/L (20.0-31.0); Chloride 106 mMol/L (98-107); Creatinine (Component) 1.0 mg/dL (0.6-1.3); Glucose 112 mg/dL (74-106); Osmolality,Calculated 289 (275-295); Phosphorous 4.2 mg/dL (2.4-5.1); Potassium 4.8 mMol/L (3.4-5.1); Sodium 143 mMol/L (136-145); eGFR 57 See Note
== END | disposition home or self-care (01) ==
LOC: CCTX 11:13 → COPL 11:40
PROVIDERS: PCP Family Medicine; Referring Provider Family Medicine; Visit Provider Radiology Diagnostic Radiology
DX: M79.671 Pain in right foot (principal); K92.2 Gastrointestinal hemorrhage, unspecified; N18.30 Chronic kidney disease, stage 3 unspecified
CPT/HCPCS: 36415; 73700; 80069; 85025